=== PATIENT | female | born 1975 | race Caucasian/White ===

== ENCOUNTER 2016-11-23 00:49 | Inpatient (IN) | payer OTHER ==
[2016-11-23 01:41] LABS: Hematocrit 41 % (35-47); Hemoglobin 13.3 g/dl (12.0-16.0); Mean Corpuscular HGB Conc 33 g/dl (31-36); Mean Corpuscular Hemoglobin 31 pg (27-31); Mean Corpuscular Volume 95 fL (80-97); Mean Platelet Volume 7 um3 (7.4-10.4); Red Blood Count 4.27 10^6/ul (4.0-5.4); Red Cell Distribution Width 14 % (10.5-15); White Blood Count 18.9 10^3/ul (3.5-10.8)
[2016-11-23] MEDS ORDERED: hydrOXYzine HCL TAB* 50 MG PO ONE (01:45)
[2016-11-23 01:49] LABS: ALT 25 U/L (7-52); AST 31 U/L (13-39); Albumin 4.3 g/dL (3.2-5.2); Alkaline Phosphatase 63 U/L (34-104); Anion Gap 10 mmol/L (2-11); BUN/Creatinine Ratio 16.7 (8-20); Blood Urea Nitrogen 13 mg/dL (6-24); CO2 Carbon Dioxide 24 mmol/L (22-32); Calcium 8.8 mg/dL (8.6-10.3); Chloride 102 mmol/L (101-111); EGFR African American 105.7 (>60); EGFR Non-African American 82.2 (>60); Globulin 2.6 g/dL (2-4); Glucose 89 mg/dL (70-100); Potassium 3.5 mmol/L (3.5-5.0); Sodium 136 mmol/L (133-145); Total Protein 6.9 g/dL (6.4-8.9)
[2016-11-23 01:59] LABS: Acetaminophen < 15 mcg/mL; Alcohol 140 mg/dL (<10); Salicylate < 2.50 mg/dL (<30)
[2016-11-23 02:09] LABS: TSH (Thyroid Stimulating Horm) 1.84 mcIU/mL (0.34-5.60)
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
[2016-11-23 07:46] LABS: Urine Bilirubin Negative (Negative); Urine Glucose Negative (Negative); Urine Nitrite Negative (Negative)
[2016-11-23] MEDS ORDERED: Ibuprofen TAB* 600 MG PO ONE (08:04)
[2016-11-23 08:12] LABS: Benzodiazepine Urine Screen Presumptive Positive (None Detect)
--- NOTE | 2016-11-23 09:20 | RAD ---
Indication: Right knee swelling. 4 views of the right knee demonstrates no fracture. No other bone or joint abnormality is noted. IMPRESSION: No fracture of the right knee is noted.
--- NOTE | 2016-11-23 10:46 | ED ---
Gal Coleman Michael, scribed for Joe Mcmullen MD on 11/23/16 at 0808 . Progress - Progress Note Progress Note: The pt was signed out by Dr. Hull to Dr. Mcmullen. The pt was waiting for her knee XR results. The XR is negative. The pt has been seen by Psych and she will be admitted in stable condition with a diagnosis of bipolar manuel. - Results/Orders Results/Orders: Knee XR- ED provider: The knee XR is negative. - Consult/PCP Time Called: 07:25 Course/Dx - Diagnoses Provider Diagnoses: Alcohol intoxication, Suicidal ideation The documentation as recorded by the jonathanibGal sheffield Michael accurately reflects the service I personally performed and the decisions made by , Joe Mcmullen MD.
[2016-11-23] MEDS ORDERED: Al Hydrox/Mg Hydrox/Simet LIQ* 30 ML UDC PO PRN (11:16)
[2016-11-23] MEDS: Nicotine Inhaler* 10 MG AMP INH PRN ×4 (11:51→21:29)
[2016-11-23] MEDS: Acetaminophen TAB* 325 MG PO PRN ×2 (11:51→19:13)
[2016-11-23] MEDS: Mouth Piece, Nicotine* 1 EACH CARTRIDGE ONE (12:29)
[2016-11-23] MEDS: hydrOXYzine HCL TAB* 50 MG PO PRN ×3 (13:33→21:04)
[2016-11-23] MEDS: Ibuprofen TAB* 600 MG PO PRN ×2 (15:42→21:04)
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
[2016-11-23] MEDS: Hydrocortisone 1% CREAM* 30 GM TUBE TOPICAL SCH (20:30)
[2016-11-23] MEDS: Divalproex ER TAB(*) 500 MG PO SCH (20:32)
[2016-11-23] MEDS: traZODone TAB* 50 MG TAB PO SCH (23:15)
[2016-11-24] MEDS: Hydrocortisone 1% CREAM* 30 GM TUBE TOPICAL SCH ×4 (04:50→18:06)
[2016-11-24] MEDS ORDERED: Mouth Piece, Nicotine* 1 EACH CARTRIDGE ONE (05:06)
[2016-11-24] MEDS: Mouth Piece, Nicotine* 1 EACH CARTRIDGE ONE (05:10)
[2016-11-24] MEDS: hydrOXYzine HCL TAB* 50 MG PO PRN ×3 (05:10→15:59)
[2016-11-24] MEDS: Ibuprofen TAB* 600 MG PO PRN ×2 (05:10→11:15)
[2016-11-24] MEDS: Nicotine Inhaler* 10 MG AMP INH PRN ×5 (05:10→19:50)
[2016-11-24] MEDS: Vitamin THERAPEUTIC TAB PO SCH (08:28)
[2016-11-24] MEDS: Acetaminophen TAB* 325 MG PO PRN (16:00)
[2016-11-24] MEDS: Divalproex ER TAB(*) 500 MG PO SCH (20:09)
[2016-11-24] MEDS: traZODone TAB* 50 MG TAB PO SCH (20:10)
[2016-11-25] MEDS: Ibuprofen TAB* 600 MG PO PRN ×3 (00:04→18:18)
[2016-11-25] MEDS: hydrOXYzine HCL TAB* 50 MG PO PRN ×4 (00:05→18:17)
[2016-11-25] MEDS: Nicotine Inhaler* 10 MG AMP INH PRN ×4 (00:05→18:17)
[2016-11-25] MEDS: Hydrocortisone 1% CREAM* 30 GM TUBE TOPICAL SCH ×4 (02:59→18:14)
[2016-11-25] MEDS: Vitamin THERAPEUTIC TAB PO SCH (08:37)
[2016-11-25] MEDS: Acetaminophen TAB* 325 MG PO PRN (12:07)
--- NOTE | 2016-11-25 14:36 | PN ---
Subjective - Subjective Service Type: 18838 Hosp care 15 min low complexity Subjective: Ezra is well organized and pleasant today with several questions and requests. 1. staff pass 2. roommate with Gabby 3. hiwot gallegos 4. benzo 5. q30/comfort room 6. Friday discharge She is somewhat flirtatious, asks if she can see me in private practice, half- jokes about having a relationship with me beyond doctor-patient. She reports her mood is up and down, denies dangerous intent/plan or psychosis. Objective - Appearance Appearance: Healthy Appearing Dysmorphic Features: No Hygiene: Normal Grooming: Well Kept - Behavior Psychomotor Activities: Normal Exhibits Abnormal Movement: No - Attitude and Relatedness Attitude and Relatedness: Well Related - and a bit over-familiar Eye Contact: Good - Speech Quality: Unpressured Latencies: Normal Quantity: Appropriate - Mood Patient's Decription of Mood: "Up and down" - Affect Observed Affect: Labile Affect Consistent with: Euphoria - bordering on euphoria - Thought Process Patient's Thought Process: Coherent, Goal Directed Thought Content: No Passive Wish, No Suicidal Planning, No Homicidal Ideation, No Paranoid Ideation - Sensorium Experiencing Hallucinations: No, Sensorium is Clear Type of Hallucinations: Visual: No, Auditory: No, Command: No - Level of Consciousness Level of Consciousness: Alert Orientation: Yes Intact, Yes Orientated to Time, Yes Orientated to Place, Yes Orientated to Person - Impulse Control Impulse Control: Intact - but high energy with rapid, but still organized, thought excursions - Insight and Judgement Insight and Judgement: Fair - Group Participation Particating in Group Activities: Yes - Medication Management Medication Management Adherence: Yes Assessment - Assessment Merits Inpatient Hospitalization: For Stabilization, To Initiate Treatment, Consolidate Improvements, For Discharge Planning, Pending Safe DC Plan Inpatient DSM-IV Dx: Bipolar affective disorder type 1, most recent episode mixed. Post- traumatic stress disorder, complex type. Reported history of borderline personality disorder and generalized anxiety disorder. Alcohol use disorder severe, reportedly in sustained remission with only 2 lapses over the past 2 years, also benzodiazepine use disorder and cannabinoid use disorder. Clinical Impression: Day of admission 17: Ms. Teran is a 41-year-old woman who reports a remote history of manic episode lasting 4 months. She reports that she feels that she is having manic symptoms due to Xanax that she is taking currently. She has an extensive history of alcohol use disorder leading to bad consequences for her. She is with us now because of aggressive behavior under the influence of alcohol, resulting in spitting in a police officers face and other erratic behavior. Her family is convinced that she is ramping up into a manic episode and has not been doing well for some time now, and they advocated strongly for her admission to the unit per report of the emergency department medical care administrator. She has been admitted for safety, assessment and treatment. She has agreed to a trial of Depakote along with Atarax for anxiety. She is about 55 kg and so we will start with 10 mg/kg dosing of the Depakote to about 500 mg. I have started her as well on Atarax 50 mg every 4 hours p.r.n. anxiety. She is on nicotine replacement. Aftercare is likely to be return to care at [facility]. She was quite agitated initially, but receptive to overtures to form an alliance and there are some indications that she may do well here despite initial presentation as quite anxious and agitated. We will be gathering collateral from those in the community that she permits us to. We will consider also psychological testing to help clarify diagnostic picture. We may consider with her whether referral to some sort of substance abuse treatment might be indicated due to a recent relapse, which may be understated. Day 3, 17: Still high energy and somewhat overfamiliar, but well organized with me, though I see in her interaction with nurse Lozoya, she was tearful at times. Will nubia all of her request except room change and staff pass, former to be decided by nursing staff, latter tomorrow on treatment team with input of staff who have more contact with her at that point. Discharge when manuel has lifted sufficiently. Plan - Plan Treatment Plan: Name: EZRA TERAN Birthdate: 1975 [id number] Add Klonopin 0.5 mg po bid to current meds. Monitor MS and safety. Gather collateral. Plan toward discharge to continued care with community mental health providers. Medications: Current Medications Acetaminophen (Tylenol Tab*) 650 mg PO Q4H PRN PRN Reason: for pain; or Temp >101 F Last Admin: 11/25/16 12:07 Dose: 650 mg Al Hydrox/Mg Hydrox/Simethicone (Maalox Plus*) 30 ml PO Q4H PRN PRN Reason: INDIGESTION Clonazepam (Klonopin Tab(*)) 0.5 mg PO BID [facility] Divalproex Sodium (Depakote Er Tab(*)) 500 mg PO BEDTIME [facility] Last Admin: 11/24/16 20:09 Dose: 500 mg Hydrocortisone (Hytone Cream 1%*) 1 applic TOPICAL Q6HR [facility] Last Admin: 11/25/16 12:07 Dose: 1 applic Hydroxyzine HCl (Atarax Tab*) 50 mg PO Q4H PRN PRN Reason: ANXIETY Last Admin: 11/25/16 12:59 Dose: 50 mg Ibuprofen (Motrin Tab*) 600 mg PO Q6H PRN PRN Reason: PAIN Last Admin: 11/25/16 08:37 Dose: 600 mg Multi-Ingredient Liniment/Rub (Hiwot Gallegos*) 1 applic TOPICAL TID [facility] Multivitamins (Theragran Tab*) 1 tab PO DAILY [facility] Last Admin: 11/25/16 08:37 Dose: 1 tab Nicotine (Nicotine Inhaler*) 10 mg INH Q2H PRN PRN Reason: CRAVING Last Admin: 11/25/16 12:06 Dose: 10 mg Nicotine Polacrilex (Nicotine Gum*) 2 mg PO Q2H PRN PRN Reason: CRAVING Risperidone (Risperdal) 0.5 mg PO BID [facility] Last Admin: 11/25/16 08:38 Dose: 0.5 mg Trazodone HCl (Desyrel Tab*) 50 mg PO BEDTIME [facility] Last Admin: 11/24/16 20:10 Dose: 50 mg - Discharge Plan Discharge Plan: Outpatient Follow Up
[2016-11-25] MEDS: Nicotine GUM* 2 MG PO PRN ×2 (15:50→20:32)
[2016-11-25] MEDS ORDERED: clonazePAM TAB(*) 0.5 MG ONE (16:03)
[2016-11-25] MEDS ORDERED: clonazePAM TAB(*) 0.5 MG PO ONE (17:00)
[2016-11-25] MEDS: traZODone TAB* 50 MG TAB PO SCH (20:29)
[2016-11-25] MEDS: clonazePAM TAB(*) 0.5 MG PO SCH (20:29)
[2016-11-25] MEDS: Analgesic BALM* 114 GM TOPICAL SCH (20:30)
[2016-11-25] MEDS: Divalproex ER TAB(*) 500 MG PO SCH (20:30)
[2016-11-26] MEDS: Hydrocortisone 1% CREAM* 30 GM TUBE TOPICAL SCH ×4 (00:35→21:04)
[2016-11-26] MEDS: clonazePAM TAB(*) 0.5 MG PO SCH (09:04)
[2016-11-26] MEDS: Vitamin THERAPEUTIC TAB PO SCH (09:05)
[2016-11-26] MEDS: Nicotine GUM* 2 MG PO PRN ×4 (09:07→16:35)
[2016-11-26] MEDS: Nicotine Inhaler* 10 MG AMP INH PRN (09:07)
[2016-11-26] MEDS: Ibuprofen TAB* 600 MG PO PRN ×3 (09:08→21:10)
[2016-11-26] MEDS: hydrOXYzine HCL TAB* 50 MG PO PRN ×3 (09:08→21:10)
[2016-11-26] MEDS: Analgesic BALM* 114 GM TOPICAL SCH ×3 (09:09→21:03)
--- NOTE | 2016-11-26 17:10 | PN ---
Subjective - Subjective Service Type: 11366 Hosp care 15 min low complexity Subjective: Ezra says she is sad that we did not nubia staff pass today, and that her boyfriend Feliz is sick so cannot visit her today. She requests increased Klonopin frequency from q12 to q6 hours. She also requests flonase. She feels her medications are helpful. [place] apologetic with social work staff today, appears labile. Objective - Appearance Appearance: Healthy Appearing Dysmorphic Features: No Hygiene: Normal Grooming: Fairly Well Kept - Behavior Psychomotor Activities: Normal Exhibits Abnormal Movement: No - Attitude and Relatedness Attitude and Relatedness: Cooperative Eye Contact: Good - Speech Quality: Unpressured Latencies: Normal Quantity: Appropriate - Mood Patient's Decription of Mood: "Sad" - Affect Observed Affect: Labile Affect Consistent with: Dysphoria - Thought Process Patient's Thought Process: Coherent, Goal Directed Thought Content: No Passive Wish, No Suicidal Planning, No Homicidal Ideation, No Paranoid Ideation - Sensorium Experiencing Hallucinations: No, Sensorium is Clear Type of Hallucinations: Visual: No, Auditory: No, Command: No - Level of Consciousness Level of Consciousness: Alert Orientation: Yes Intact, Yes Orientated to Time, Yes Orientated to Place, Yes Orientated to Person - Impulse Control Impulse Control: Intact - Insight and Judgement Insight and Judgement: Fair Assessment - Assessment Merits Inpatient Hospitalization: For Stabilization, Consolidate Improvements, For Discharge Planning Inpatient DSM-IV Dx: Bipolar affective disorder type 1, most recent episode mixed. Post- traumatic stress disorder, complex type. Reported history of borderline personality disorder and generalized anxiety disorder. Alcohol use disorder severe, reportedly in sustained remission with only 2 lapses over the past 2 years, also benzodiazepine use disorder and cannabinoid use disorder. Clinical Impression: Day of admission 17: Ms. Teran is a 41-year-old woman who reports a remote history of manic episode lasting 4 months. She reports that she feels that she is having manic symptoms due to Xanax that she is taking currently. She has an extensive history of alcohol use disorder leading to bad consequences for her. She is with us now because of aggressive behavior under the influence of alcohol, resulting in spitting in a police officers face and other erratic behavior. Her family is convinced that she is ramping up into a manic episode and has not been doing well for some time now, and they advocated strongly for her admission to the unit per report of the emergency department pickle pumper. She has been admitted for safety, assessment and treatment. She has agreed to a trial of Depakote along with Atarax for anxiety. She is about 55 kg and so we will start with 10 mg/kg dosing of the Depakote to about 500 mg. I have started her as well on Atarax 50 mg every 4 hours p.r.n. anxiety. She is on nicotine replacement. Aftercare is likely to be return to care at [facility]. She was quite agitated initially, but receptive to overtures to form an alliance and there are some indications that she may do well here despite initial presentation as quite anxious and agitated. We will be gathering collateral from those in the community that she permits us to. We will consider also psychological testing to help clarify diagnostic picture. We may consider with her whether referral to some sort of substance abuse treatment might be indicated due to a recent relapse, which may be understated. Day 3, 320.17: Still high energy and somewhat overfamiliar, but well organized with me, though I see in her interaction with nurse Lozoya, she was tearful at times. Will nubia all of her request except room change and staff pass, former to be decided by nursing staff, latter tomorrow on treatment team with input of staff who have more contact with her at that point. Discharge when manuel has lifted sufficiently. Plan - Plan Treatment Plan: Name: EZRA TERAN Birthdate: 1975 [id number] Increase Klonopin 0.5 mg po to q6hrs prn. Monitor MS and safety. Gather collateral. Plan toward discharge to continued care with community mental health providers. Medications: Current Medications Acetaminophen (Tylenol Tab*) 650 mg PO Q4H PRN PRN Reason: for pain; or Temp >101 F Last Admin: 11/25/16 12:07 Dose: 650 mg Al Hydrox/Mg Hydrox/Simethicone (Maalox Plus*) 30 ml PO Q4H PRN PRN Reason: INDIGESTION Clonazepam (Klonopin Tab(*)) 0.5 mg PO BID [facility] Last Admin: 11/26/16 09:04 Dose: 0.5 mg Divalproex Sodium (Depakote Er Tab(*)) 500 mg PO BEDTIME [facility] Last Admin: 11/25/16 20:30 Dose: 500 mg Hydrocortisone (Hytone Cream 1%*) 1 applic TOPICAL Q6HR [facility] Last Admin: 11/26/16 12:02 Dose: 1 applic Hydroxyzine HCl (Atarax Tab*) 50 mg PO Q4H PRN PRN Reason: ANXIETY Last Admin: 11/26/16 16:35 Dose: 50 mg Ibuprofen (Motrin Tab*) 600 mg PO Q6H PRN PRN Reason: PAIN Last Admin: 11/26/16 16:34 Dose: 600 mg Multi-Ingredient Liniment/Rub (Pedro Martinez*) 1 applic TOPICAL TID [facility] Last Admin: 11/26/16 13:56 Dose: 1 applic Multivitamins (Theragran Tab*) 1 tab PO DAILY [facility] Last Admin: 11/26/16 09:05 Dose: 1 tab Nicotine (Nicotine Inhaler*) 10 mg INH Q2H PRN PRN Reason: CRAVING Last Admin: 11/26/16 09:07 Dose: 10 mg Nicotine Polacrilex (Nicotine Gum*) 2 mg PO Q2H PRN PRN Reason: CRAVING Last Admin: 11/26/16 16:35 Dose: 2 mg Risperidone (Risperdal) 0.5 mg PO BID [facility] Last Admin: 11/26/16 09:05 Dose: 0.5 mg Trazodone HCl (Desyrel Tab*) 50 mg PO BEDTIME [facility] Last Admin: 11/25/16 20:29 Dose: 50 mg - Discharge Plan Discharge Plan: Outpatient Follow Up
[2016-11-26] MEDS: clonazePAM TAB(*) 0.5 MG PO PRN ×2 (17:37→23:36)
[2016-11-26] MEDS: Divalproex ER TAB(*) 500 MG PO SCH (21:00)
[2016-11-26] MEDS: traZODone TAB* 50 MG TAB PO SCH (21:01)
[2016-11-26] MEDS: Fluticasone NASAL SPRAY 50MCG* 16 gm SPRAY BTL BOTH NARES SCH (21:07)
[2016-11-27] MEDS: Hydrocortisone 1% CREAM* 30 GM TUBE TOPICAL SCH ×4 (05:37→20:33)
[2016-11-27] MEDS: clonazePAM TAB(*) 0.5 MG PO PRN ×3 (07:44→20:29)
[2016-11-27] MEDS: Vitamin THERAPEUTIC TAB PO SCH (07:45)
[2016-11-27] MEDS: Analgesic BALM* 114 GM TOPICAL SCH ×3 (07:45→20:41)
[2016-11-27] MEDS: Fluticasone NASAL SPRAY 50MCG* 16 gm SPRAY BTL BOTH NARES SCH (07:46)
[2016-11-27] MEDS: Nicotine Inhaler* 10 MG AMP INH PRN ×3 (07:49→15:56)
[2016-11-27] MEDS: Nicotine GUM* 2 MG PO PRN ×6 (07:49→20:30)
[2016-11-27] MEDS: Ibuprofen TAB* 600 MG PO PRN ×2 (09:56→15:56)
[2016-11-27] MEDS: hydrOXYzine HCL TAB* 50 MG PO PRN ×2 (09:56→14:35)
[2016-11-27] MEDS: Acetaminophen TAB* 325 MG PO PRN ×2 (12:50→18:39)
--- NOTE | 2016-11-27 13:14 | PN ---
[facility]: Group Therapy Note - Service Type Service Type: 24397 Group Psychotherapy - Cognitive Behavioral Group Therapy ( CBT):Patient was attentive and participatory in CBT programming this morning, and remained in good behavioral control. Patient expressed positive insights regarding relevant treatment interventions and goals.
[2016-11-27] MEDS ORDERED: Mouth Piece, Nicotine* 1 EACH CARTRIDGE ONE (15:55)
--- NOTE | 2016-11-27 16:46 | PN ---
Subjective - Subjective Service Type: 69851 Hosp care 15 min low complexity Subjective: Ezra reports feeling sad after a meeting she had with the conduit worker on this case, Ms Briseno. She reports that she does not want to go to rehab as she feels threatened in rehab programs, would instead like to continue with going to the [facility] in [place], to which she has found someone to give her a ride. She requests increased doses of Depakote, Risperdal, and Atarax. Objective - Appearance Appearance: Healthy Appearing Dysmorphic Features: No Hygiene: Normal Grooming: Fairly Well Kept - Behavior Psychomotor Activities: Normal Exhibits Abnormal Movement: No - Attitude and Relatedness Attitude and Relatedness: Well Related - if a bit over-familiar Eye Contact: Good - Speech Quality: Unpressured Latencies: Normal Quantity: Appropriate - Mood Patient's Decription of Mood: "Sad" - Affect Observed Affect: Fair Affect Consistent with: Euthymia - but with a labile feel - Thought Process Patient's Thought Process: Coherent, Goal Directed Thought Content: No Passive Wish, No Suicidal Planning, No Homicidal Ideation, No Paranoid Ideation - Sensorium Experiencing Hallucinations: No, Sensorium is Clear Type of Hallucinations: Visual: No, Auditory: No, Command: No - Level of Consciousness Orientation: Yes Intact, Yes Orientated to Time, Yes Orientated to Place, Yes Orientated to Person - Impulse Control Impulse Control: Intact - Insight and Judgement Insight and Judgement: Fair - Group Participation Particating in Group Activities: Yes - Medication Management Medication Management Adherence: Yes Assessment - Assessment Merits Inpatient Hospitalization: For Stabilization, For Ongoing Evaluation, For Discharge Planning, Pending Safe DC Plan Inpatient DSM-IV Dx: Bipolar affective disorder type 1, most recent episode mixed. Post- traumatic stress disorder, complex type. Reported history of borderline personality disorder and generalized anxiety disorder. Alcohol use disorder severe, reportedly in sustained remission with only 2 lapses over the past 2 years, also benzodiazepine use disorder and cannabinoid use disorder. Clinical Impression: Day of admission 17: Ms. Teran is a 41-year-old woman who reports a remote history of manic episode lasting 4 months. She reports that she feels that she is having manic symptoms due to Xanax that she is taking currently. She has an extensive history of alcohol use disorder leading to bad consequences for her. She is with us now because of aggressive behavior under the influence of alcohol, resulting in spitting in a police officers face and other erratic behavior. Her family is convinced that she is ramping up into a manic episode and has not been doing well for some time now, and they advocated strongly for her admission to the unit per report of the emergency department developer relations manager. She has been admitted for safety, assessment and treatment. She has agreed to a trial of Depakote along with Atarax for anxiety. She is about 55 kg and so we will start with 10 mg/kg dosing of the Depakote to about 500 mg. I have started her as well on Atarax 50 mg every 4 hours p.r.n. anxiety. She is on nicotine replacement. Aftercare is likely to be return to care at [facility]. She was quite agitated initially, but receptive to overtures to form an alliance and there are some indications that she may do well here despite initial presentation as quite anxious and agitated. We will be gathering collateral from those in the community that she permits us to. We will consider also psychological testing to help clarify diagnostic picture. We may consider with her whether referral to some sort of substance abuse treatment might be indicated due to a recent relapse, which may be understated. Day 3, 20.17: Still high energy and somewhat overfamiliar, but well organized with me, though I see in her interaction with nurse Lozoya, she was tearful at times. Will nubia all of her request except room change and staff pass, former to be decided by nursing staff, latter tomorrow on treatment team with input of staff who have more contact with her at that point. Discharge when manuel has lifted sufficiently. Day 5, 11.27.17: Still with lability in her presentation, but less so. Agrees to meeting with boyfriend prior to discharge. Plan - Plan Treatment Plan: Name: EZRA TERAN Birthdate: 1975 [id number] Increase Depakote, Risperdal and Atarax doses. Monitor MS and safety. Gather collateral. Plan toward discharge to continued care with community mental health providers. Medications: Current Medications Acetaminophen (Tylenol Tab*) 650 mg PO Q4H PRN PRN Reason: for pain; or Temp >101 F Last Admin: 11/27/16 12:50 Dose: 650 mg Al Hydrox/Mg Hydrox/Simethicone (Maalox Plus*) 30 ml PO Q4H PRN PRN Reason: INDIGESTION Clonazepam (Klonopin Tab(*)) 0.5 mg PO Q6H PRN PRN Reason: ANXIETY Last Admin: 11/27/16 14:36 Dose: 0.5 mg Divalproex Sodium (Depakote Er Tab(*)) 500 mg PO BEDTIME [facility] Last Admin: 11/26/16 21:00 Dose: 500 mg Fluticasone Propionate (Flonase Nasal [place] 50mcg*) 2 spray BOTH NARES DAILY [facility] Last Admin: 11/27/16 07:46 Dose: 2 spray Hydrocortisone (Hytone Cream 1%*) 1 applic TOPICAL Q6HR [facility] Last Admin: 11/27/16 12:43 Dose: 1 applic Hydroxyzine HCl (Atarax Tab*) 50 mg PO Q4H PRN PRN Reason: ANXIETY Last Admin: 11/27/16 14:35 Dose: 50 mg Ibuprofen (Motrin Tab*) 600 mg PO Q6H PRN PRN Reason: PAIN Last Admin: 11/27/16 15:56 Dose: 600 mg Multi-Ingredient Liniment/Rub (Pedro Martinez*) 1 applic TOPICAL TID [facility] Last Admin: 11/27/16 14:33 Dose: 1 applic Multivitamins (Theragran Tab*) 1 tab PO DAILY [facility] Last Admin: 11/27/16 07:45 Dose: 1 tab Nicotine (Nicotine Inhaler*) 10 mg INH Q2H PRN PRN Reason: CRAVING Last Admin: 11/27/16 15:56 Dose: 10 mg Nicotine Polacrilex (Nicotine Gum*) 2 mg PO Q2H PRN PRN Reason: CRAVING Last Admin: 11/27/16 15:56 Dose: 2 mg Risperidone (Risperdal) 0.5 mg PO BID [facility] Last Admin: 11/27/16 07:45 Dose: 0.5 mg Trazodone HCl (Desyrel Tab*) 50 mg PO BEDTIME [facility] Last Admin: 11/26/16 21:01 Dose: 50 mg - Discharge Plan Discharge Plan: Outpatient Follow Up
[2016-11-27] MEDS: Divalproex ER TAB(*) 500 MG PO SCH (20:29)
[2016-11-27] MEDS: risperiDONE TAB* 1 MG PO SCH (20:29)
[2016-11-27] MEDS: traZODone TAB* 50 MG TAB PO SCH (20:29)
[2016-11-28] MEDS: Hydrocortisone 1% CREAM* 30 GM TUBE TOPICAL SCH ×4 (00:22→18:44)
[2016-11-28] MEDS: Nicotine GUM* 2 MG PO PRN ×5 (09:06→20:39)
[2016-11-28] MEDS: clonazePAM TAB(*) 0.5 MG PO PRN ×3 (09:06→21:34)
[2016-11-28] MEDS: hydrOXYzine HCL TAB* 50 MG PO PRN ×3 (09:07→18:44)
[2016-11-28] MEDS: Ibuprofen TAB* 600 MG PO PRN ×2 (09:07→15:18)
[2016-11-28] MEDS: Fluticasone NASAL SPRAY 50MCG* 16 gm SPRAY BTL BOTH NARES SCH (09:08)
[2016-11-28] MEDS: Vitamin THERAPEUTIC TAB PO SCH (09:08)
[2016-11-28] MEDS: risperiDONE TAB* 1 MG PO SCH ×2 (09:08→20:37)
[2016-11-28] MEDS: Divalproex DR TAB(*) 125 MG PO SCH (09:09)
[2016-11-28] MEDS: Analgesic BALM* 114 GM TOPICAL SCH ×3 (09:11→20:35)
[2016-11-28] MEDS: Nicotine Inhaler* 10 MG AMP INH PRN ×2 (12:14→17:19)
[2016-11-28] MEDS: Acetaminophen TAB* 325 MG PO PRN ×2 (12:50→17:19)
--- NOTE | 2016-11-28 17:17 | PN ---
Subjective - Subjective Service Type: 17332 Hosp care 15 min low complexity Subjective: Family meeting held today with Ezra, her boyfriend, Ms Briseno and myself. Feliz reported seeing Ezra near to her baseline and safe for discharge tomorrow. Ezra agreed with that plan. Objective - Appearance Appearance: Healthy Appearing Dysmorphic Features: No Hygiene: Normal Grooming: Well Kept - Behavior Psychomotor Activities: Normal Exhibits Abnormal Movement: No - Attitude and Relatedness Attitude and Relatedness: Well Related - and less overfamiliar than 2 days ago Eye Contact: Good - Speech Quality: Unpressured Latencies: Normal Quantity: Appropriate - Mood Patient's Decription of Mood: "Good" - Affect Observed Affect: Good Affect Consistent with: Euthymia - Thought Process Patient's Thought Process: Coherent, Goal Directed Thought Content: No Passive Wish, No Suicidal Planning, No Homicidal Ideation, No Paranoid Ideation - Sensorium Experiencing Hallucinations: No, Sensorium is Clear Type of Hallucinations: Visual: No, Auditory: No, Command: No - Level of Consciousness Level of Consciousness: Alert Orientation: Yes Intact, Yes Orientated to Time, Yes Orientated to Place, Yes Orientated to Person - Impulse Control Impulse Control: Intact - Insight and Judgement Insight and Judgement: Fair - Group Participation Particating in Group Activities: Yes - Medication Management Medication Management Adherence: Yes Assessment - Assessment Inpatient DSM-IV Dx: Bipolar affective disorder type 1, most recent episode mixed. Post- traumatic stress disorder, complex type. Reported history of borderline personality disorder and generalized anxiety disorder. Alcohol use disorder severe, reportedly in sustained remission with only 2 lapses over the past 2 years, also benzodiazepine use disorder and cannabinoid use disorder. Clinical Impression: Day of admission 3.17: Ms. Teran is a 41-year-old woman who reports a remote history of manic episode lasting 4 months. She reports that she feels that she is having manic symptoms due to Xanax that she is taking currently. She has an extensive history of alcohol use disorder leading to bad consequences for her. She is with us now because of aggressive behavior under the influence of alcohol, resulting in spitting in a police officers face and other erratic behavior. 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 She has been admitted for safety, assessment and treatment. She has agreed to a trial of Depakote along with Atarax for anxiety. She is about 55 kg and so we will start with 10 mg/kg dosing of the Depakote to about 500 mg. I have started her as well on Atarax 50 mg every 4 hours p.r.n. anxiety. She is on nicotine replacement. Aftercare is likely to be return to care at [facility]. She was quite agitated initially, but receptive to overtures to form an alliance and there are some indications that she may do well here despite initial presentation as quite anxious and agitated. We will be gathering collateral from those in the community that she permits us to. We will consider also psychological testing to help clarify diagnostic picture. We may consider with her whether referral to some sort of substance abuse treatment might be indicated due to a recent relapse, which may be understated. Day 3, 11.25.17: Still high energy and somewhat overfamiliar, but well organized with me, though I see in her interaction with nurse Lozoya, she was tearful at times. Will nubia all of her request except room change and staff pass, former to be decided by nursing staff, latter tomorrow on treatment team with input of staff who have more contact with her at that point. Discharge when manuel has lifted sufficiently. Day 5, 11.27.17: Still with lability in her presentation, but less so. Agrees to meeting with boyfriend prior to discharge. Day 6, 11.28.17: Reports feeling safe and ready for discharge. Her boyfriend agrees. She agrees to d/c Klonopin, likes hydroxyzine as anxiolytic. Plan for discharge midday tomorrow. Plan - Plan Treatment Plan: Name: EZRA TERAN Birthdate: 1975 [id number] Continue Depakote, Risperdal and Atarax. Monitor MS and safety. Discharge tomorrow to continued care with community mental health providers. Medications: Current Medications Acetaminophen (Tylenol Tab*) 650 mg PO Q4H PRN PRN Reason: for pain; or Temp >101 F Last Admin: 11/28/16 12:50 Dose: 650 mg Al Hydrox/Mg Hydrox/Simethicone (Maalox Plus*) 30 ml PO Q4H PRN PRN Reason: INDIGESTION Clonazepam (Klonopin Tab(*)) 0.5 mg PO Q6H PRN PRN Reason: ANXIETY Last Admin: 11/28/16 15:19 Dose: 0.5 mg Divalproex Sodium (Depakote Er Tab(*)) 500 mg PO BEDTIME [facility] Last Admin: 11/27/16 20:29 Dose: 500 mg Divalproex Sodium (Depakote Dr Tab(*)) 125 mg PO DAILY [facility] Last Admin: 11/28/16 09:09 Dose: 125 mg Fluticasone Propionate (Flonase Nasal [place] 50mcg*) 2 spray BOTH NARES DAILY [facility] Last Admin: 11/28/16 09:08 Dose: 2 spray Hydrocortisone (Hytone Cream 1%*) 1 applic TOPICAL Q6HR [facility] Last Admin: 11/28/16 12:12 Dose: 1 applic Hydroxyzine HCl (Atarax Tab*) 50 mg PO Q4H PRN PRN Reason: ANXIETY Last Admin: 11/28/16 14:12 Dose: 50 mg Ibuprofen (Motrin Tab*) 600 mg PO Q6H PRN PRN Reason: PAIN Last Admin: 11/28/16 15:18 Dose: 600 mg Multi-Ingredient Liniment/Rub (Pedro Martinez*) 1 applic TOPICAL TID [facility] Last Admin: 11/28/16 14:12 Dose: 1 applic Multivitamins (Theragran Tab*) 1 tab PO DAILY [facility] Last Admin: 11/28/16 09:08 Dose: 1 tab Nicotine (Nicotine Inhaler*) 10 mg INH Q2H PRN PRN Reason: CRAVING Last Admin: 11/28/16 12:14 Dose: 10 mg Nicotine Polacrilex (Nicotine Gum*) 2 mg PO Q2H PRN PRN Reason: CRAVING Last Admin: 11/28/16 15:19 Dose: 2 mg Risperidone (Risperdal*) 1 mg PO BID [facility] Last Admin: 11/28/16 09:08 Dose: 1 mg Trazodone HCl (Desyrel Tab*) 50 mg PO BEDTIME [facility] Last Admin: 11/27/16 20:29 Dose: 50 mg - Discharge Plan Discharge Plan: Outpatient Follow Up Outpatient Program: [facility]
[2016-11-28] MEDS: Divalproex ER TAB(*) 500 MG PO SCH (20:37)
[2016-11-28] MEDS: traZODone TAB* 50 MG TAB PO SCH (20:37)
[2016-11-29] MEDS: Hydrocortisone 1% CREAM* 30 GM TUBE TOPICAL SCH ×4 (00:03→18:03)
[2016-11-29] MEDS: Ibuprofen TAB* 600 MG PO PRN ×4 (00:05→20:19)
[2016-11-29] MEDS: hydrOXYzine HCL TAB* 50 MG PO PRN ×4 (00:05→20:19)
[2016-11-29] MEDS: Nicotine GUM* 2 MG PO PRN ×7 (00:05→20:19)
[2016-11-29] MEDS: clonazePAM TAB(*) 0.5 MG PO PRN ×3 (05:55→18:13)
[2016-11-29] MEDS: Nicotine Inhaler* 10 MG AMP INH PRN ×4 (07:02→20:19)
[2016-11-29] MEDS: risperiDONE TAB* 1 MG PO SCH ×2 (09:02→20:19)
[2016-11-29] MEDS: Vitamin THERAPEUTIC TAB PO SCH (09:02)
[2016-11-29] MEDS: Fluticasone NASAL SPRAY 50MCG* 16 gm SPRAY BTL BOTH NARES SCH (09:03)
[2016-11-29] MEDS: Divalproex DR TAB(*) 125 MG PO SCH (09:03)
[2016-11-29] MEDS: Analgesic BALM* 114 GM TOPICAL SCH ×3 (09:04→21:04)
[2016-11-29] MEDS: Acetaminophen TAB* 325 MG PO PRN ×2 (09:09→17:55)
--- NOTE | 2016-11-29 14:13 | DS ---
Subjective - Subjective Service Types: 62475 [facility] Day Mgmt complex over 30 min Discharge Date: 11/29/16 Subjective: Discharge was anticipated for today until on treatment team this morning it was reported that she threatened to kill herself after discharge in the midst of an argument over the phone with her boyfriend Feliz. Per Feliz, her statement was that she would join a relative. She denies that she made such a statement. She is very upset that she cannot leave to complete a Reiki I atunement this weekend. Her mother has called to advocate for her discharge and reported that Feliz abuses Adderall and cough syrup and has a history of manipulativeness with Samira. Objective - Appearance Appearance: Healthy Appearing Dysmorphic Features: No Hygiene: Normal Grooming: Fairly Well Kept - Behavior Psychomotor Activities: Normal Exhibits Abnormal Movement: No - Attitude and Relatedness Attitude and Relatedness: Well Related Eye Contact: Good - Speech Quality: Unpressured Latencies: Normal Quantity: Appropriate - Mood Patient's Decription of Mood: "Upset" - Affect Observed Affect: Labile Affect Consistent with: Dysphoria - appropriately to a degree - Thought Process Patient's Thought Process: Coherent, Goal Directed Thought Content: No Passive Wish, No Suicidal Planning, No Homicidal Ideation, No Paranoid Ideation - Sensorium Experiencing Hallucinations: No, Sensorium is Clear Type of Hallucinations: Visual: No, Auditory: No, Command: No - Level of Consciousness Level of Consciousness: Alert Orientation: Yes Intact, Yes Orientated to Time, Yes Orientated to Place, Yes Orientated to Person - Impulse Control Impulse Control: Intact - Insight and Judgement Insight and Judgement: Fair - Group Participation Particating in Group Activities: Yes - Medication Management Medication Management Adherence: Yes Treatment Course & Assessment Clinical Course & Impression: Day of admission 11.23.16: Ms. Corona is a 41-year-old woman who reports a remote history of manic episode lasting 4 months. She reports that she feels that she is having manic symptoms due to Xanax that she is taking currently. She has an extensive history of alcohol use disorder leading to bad consequences for her. She is with us now because of aggressive behavior under the influence of alcohol, resulting in spitting in a police officers face and other erratic behavior. 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 She has been admitted for safety, assessment and treatment. She has agreed to a trial of Depakote along with Atarax for anxiety. She is about 55 kg and so we will start with 10 mg/kg dosing of the Depakote to about 500 mg. I have started her as well on Atarax 50 mg every 4 hours p.r.n. anxiety. She is on nicotine replacement. Aftercare is likely to be return to care at [facility]. She was quite agitated initially, but receptive to overtures to form an alliance and there are some indications that she may do well here despite initial presentation as quite anxious and agitated. We will be gathering collateral from those in the community that she permits us to. We will consider also psychological testing to help clarify diagnostic picture. We may consider with her whether referral to some sort of substance abuse treatment might be indicated due to a recent relapse, which may be understated. Day 3, 11.25.17: Still high energy and somewhat overfamiliar, but well organized with me, though I see in her interaction with nurse Lozoya, she was tearful at times. Will nubia all of her request except room change and staff pass, former to be decided by nursing staff, latter tomorrow on treatment team with input of staff who have more contact with her at that point. Discharge when manuel has lifted sufficiently. Day 5, 11.27.17: Still with lability in her presentation, but less so. Agrees to meeting with boyfriend prior to discharge. Day , 11.28.17: Reports feeling safe and ready for discharge. Her boyfriend agrees. She agrees to d/c Klonopin, likes hydroxyzine as anxiolytic. Plan for discharge midday tomorrow. Day , 11.29.17: Report of suicidality from her boyfriend has called into question her readiness for discharge contingent on reliability of his report. His report on the face of it seems reliable, as it seems unlikely he would be reporting this for the sake of keeping her in the hospital after telling us yesterday that he was glad she would discharge today, but we cannot entirely rule out that he is manipulating the situation as Samira's mother reports. Prudence dictates delay of discharge until this situation is more settled, as the report if manipulative indicates unstable setting for discharge into apartment shared with Feliz, and if genuine indicates need for further stabilization prior to discharge. Inpatient DSM-IV Dx: Bipolar affective disorder type 1, most recent episode mixed. Post- traumatic stress disorder, complex type. Reported history of borderline personality disorder and generalized anxiety disorder. Alcohol use disorder severe, reportedly in sustained remission with only 2 lapses over the past 2 years, also benzodiazepine use disorder and cannabinoid use disorder. Discharge Planning - Discharge Planning Medications: Current Medications Acetaminophen (Tylenol Tab*) 650 mg PO Q4H PRN PRN Reason: for pain; or Temp >101 F Last Admin: 11/29/16 09:09 Dose: 650 mg Al Hydrox/Mg Hydrox/Simethicone (Maalox Plus*) 30 ml PO Q4H PRN PRN Reason: INDIGESTION Clonazepam (Klonopin Tab(*)) 0.5 mg PO Q6H PRN PRN Reason: ANXIETY Last Admin: 11/29/16 12:07 Dose: 0.5 mg Divalproex Sodium (Depakote Er Tab(*)) 500 mg PO BEDTIME [facility] Last Admin: 11/28/16 20:37 Dose: 500 mg Divalproex Sodium (Depakote Dr Tab(*)) 125 mg PO DAILY [facility] Last Admin: 11/29/16 09:03 Dose: 125 mg Fluticasone Propionate (Flonase Nasal [place] 50mcg*) 2 spray BOTH NARES DAILY [facility] Last Admin: 11/29/16 09:03 Dose: 2 spray Hydrocortisone (Hytone Cream 1%*) 1 applic TOPICAL Q6HR [facility] Last Admin: 11/29/16 12:06 Dose: 1 applic Hydroxyzine HCl (Atarax Tab*) 50 mg PO Q4H PRN PRN Reason: ANXIETY Last Admin: 11/29/16 09:07 Dose: 50 mg Ibuprofen (Motrin Tab*) 600 mg PO Q6H PRN PRN Reason: PAIN Last Admin: 11/29/16 05:58 Dose: 600 mg Multi-Ingredient Liniment/Rub (Pedro Martinez*) 1 applic TOPICAL TID [facility] Last Admin: 11/29/16 09:04 Dose: 1 applic Multivitamins (Theragran Tab*) 1 tab PO DAILY [facility] Last Admin: 11/29/16 09:02 Dose: 1 tab Nicotine (Nicotine Inhaler*) 10 mg INH Q2H PRN PRN Reason: CRAVING Last Admin: 11/29/16 07:02 Dose: 10 mg Nicotine Polacrilex (Nicotine Gum*) 2 mg PO Q2H PRN PRN Reason: CRAVING Last Admin: 11/29/16 11:40 Dose: 2 mg Risperidone (Risperdal*) 1 mg PO BID [facility] Last Admin: 11/29/16 09:02 Dose: 1 mg Trazodone HCl (Desyrel Tab*) 50 mg PO BEDTIME [facility] Last Admin: 11/28/16 20:37 Dose: 50 mg Discharge Planning: Prescriptions provided for discharge [] Yes [] No Follow up care details as per social work arrangements. Patient response to discharge plan: [] eager for discharge [] agreeable with discharge plan [] ambivalent about discharge [] disagrees with discharge today
--- NOTE | 2016-11-29 14:14 | PN ---
[facility]: Group Therapy Note - Service Type Service Type: [id number] Group Psychotherapy - CBT programming note: Samira was intially very agitated, disrupting group discussion to ventilate her frustration with having to remain the weekend. She presents with labile mood, and high volume of speech, although calms herself adequately when afforded opportunity to express herself. However she exhibits poor insight regarding symptoms, and is infuriated at now estranged boyfriend for reporting to staff his impressions that she in not stable.
--- NOTE | 2016-11-29 14:29 | PN ---
Subjective - Subjective Service Type: [id number] Hosp care 15 min low complexity Subjective: Discharge was anticipated for today until on treatment team this morning it was reported that she threatened to kill herself after discharge in the midst of an argument over the phone with her boyfriend Feliz. Per Feliz, her statement was that she would join a relative. She denies that she made such a statement. She is very upset that she cannot leave to complete a Reiki I atunement this weekend. Her mother has called to advocate for her discharge and reported that Feliz abuses Adderall and cough syrup and has a history of manipulativeness with Ezra. Objective - Appearance Appearance: Well Developed/Nourished Dysmorphic Features: No Hygiene: Normal Grooming: Fairly Well Kept - Behavior Psychomotor Activities: Normal Exhibits Abnormal Movement: No - Attitude and Relatedness Attitude and Relatedness: Well Related Eye Contact: Good - Speech Quality: Pressured Latencies: Short Quantity: Appropriate - Mood Patient's Decription of Mood: "Upset" - Affect Observed Affect: Tense Affect Consistent with: Dysphoria - appropriate to great disappointment - Thought Process Patient's Thought Process: Coherent, Goal Directed Thought Content: No Passive Wish, No Suicidal Planning, No Homicidal Ideation, No Paranoid Ideation - Sensorium Experiencing Hallucinations: No, Sensorium is Clear Type of Hallucinations: Visual: No, Auditory: No, Command: No - Level of Consciousness Level of Consciousness: Alert Orientation: Yes Intact, Yes Orientated to Time, Yes Orientated to Place, Yes Orientated to Person - Impulse Control Impulse Control: Intact - Insight and Judgement Insight and Judgement: Poor - Group Participation Particating in Group Activities: Yes - Medication Management Medication Management Adherence: Yes Assessment - Assessment Inpatient DSM-IV Dx: Bipolar affective disorder type 1, most recent episode mixed. Post- traumatic stress disorder, complex type. Reported history of borderline personality disorder and generalized anxiety disorder. Alcohol use disorder severe, reportedly in sustained remission with only 2 lapses over the past 2 years, also benzodiazepine use disorder and cannabinoid use disorder. Clinical Impression: Day of admission 17: Ms. Teran is a 41-year-old woman who reports a remote history of manic episode lasting 4 months. She reports that she feels that she is having manic symptoms due to Xanax that she is taking currently. She has an extensive history of alcohol use disorder leading to bad consequences for her. She is with us now because of aggressive behavior under the influence of alcohol, resulting in spitting in a police officers face and other erratic behavior. 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 She has been admitted for safety, assessment and treatment. She has agreed to a trial of Depakote along with Atarax for anxiety. She is about 55 kg and so we will start with 10 mg/kg dosing of the Depakote to about 500 mg. I have started her as well on Atarax 50 mg every 4 hours p.r.n. anxiety. She is on nicotine replacement. Aftercare is likely to be return to care at [facility]. She was quite agitated initially, but receptive to overtures to form an alliance and there are some indications that she may do well here despite initial presentation as quite anxious and agitated. We will be gathering collateral from those in the community that she permits us to. We will consider also psychological testing to help clarify diagnostic picture. We may consider with her whether referral to some sort of substance abuse treatment might be indicated due to a recent relapse, which may be understated. Day 3, 11.25.17: Still high energy and somewhat overfamiliar, but well organized with me, though I see in her interaction with nurse Lozoya, she was tearful at times. Will nubia all of her request except room change and staff pass, former to be decided by nursing staff, latter tomorrow on treatment team with input of staff who have more contact with her at that point. Discharge when manuel has lifted sufficiently. Day 5, 11.27.17: Still with lability in her presentation, but less so. Agrees to meeting with boyfriend prior to discharge. Day 6, 11.28.17: Reports feeling safe and ready for discharge. Her boyfriend agrees. She agrees to d/c Klonopin, likes hydroxyzine as anxiolytic. Plan for discharge midday tomorrow. Day 7, 11.29.17: Report of suicidality from her boyfriend has called into question her readiness for discharge contingent on reliability of his report. His report on the face of it seems reliable, as it seems unlikely he would be reporting this for the sake of keeping her in the hospital after telling us yesterday that he was glad she would discharge today, but we cannot entirely rule out that he is manipulating the situation as Ezra's mother reports. Prudence dictates delay of discharge until this situation is more settled, as the report if manipulative indicates unstable setting for discharge into apartment shared with Feliz, and if genuine indicates need for further stabilization prior to discharge. Plan - Plan Treatment Plan: Name: EZRA TERAN Birthdate: 1975 [id number] Continue meds. Monitor MS and safety. Discharge next week to continued care with community mental health providers once situation with report of suicidality to boyfriend is clarified and more settled. Medications: Current Medications Acetaminophen (Tylenol Tab*) 650 mg PO Q4H PRN PRN Reason: for pain; or Temp >101 F Last Admin: 11/29/16 09:09 Dose: 650 mg Al Hydrox/Mg Hydrox/Simethicone (Maalox Plus*) 30 ml PO Q4H PRN PRN Reason: INDIGESTION Clonazepam (Klonopin Tab(*)) 0.5 mg PO Q6H PRN PRN Reason: ANXIETY Last Admin: 11/29/16 12:07 Dose: 0.5 mg Divalproex Sodium (Depakote Er Tab(*)) 500 mg PO BEDTIME [facility] Last Admin: 11/28/16 20:37 Dose: 500 mg Divalproex Sodium (Depakote Dr Tab(*)) 125 mg PO DAILY [facility] Last Admin: 11/29/16 09:03 Dose: 125 mg Fluticasone Propionate (Flonase Nasal [place] 50mcg*) 2 spray BOTH NARES DAILY [facility] Last Admin: 11/29/16 09:03 Dose: 2 spray Hydrocortisone (Hytone Cream 1%*) 1 applic TOPICAL Q6HR [facility] Last Admin: 11/29/16 12:06 Dose: 1 applic Hydroxyzine HCl (Atarax Tab*) 50 mg PO Q4H PRN PRN Reason: ANXIETY Last Admin: 11/29/16 14:09 Dose: 50 mg Ibuprofen (Motrin Tab*) 600 mg PO Q6H PRN PRN Reason: PAIN Last Admin: 11/29/16 14:08 Dose: 600 mg Multi-Ingredient Liniment/Rub (Pedro Martinez*) 1 applic TOPICAL TID [facility] Last Admin: 11/29/16 09:04 Dose: 1 applic Multivitamins (Theragran Tab*) 1 tab PO DAILY [facility] Last Admin: 11/29/16 09:02 Dose: 1 tab Nicotine (Nicotine Inhaler*) 10 mg INH Q2H PRN PRN Reason: CRAVING Last Admin: 11/29/16 14:08 Dose: 10 mg Nicotine Polacrilex (Nicotine Gum*) 2 mg PO Q2H PRN PRN Reason: CRAVING Last Admin: 11/29/16 14:08 Dose: 2 mg Risperidone (Risperdal*) 1 mg PO BID [facility] Last Admin: 11/29/16 09:02 Dose: 1 mg Trazodone HCl (Desyrel Tab*) 50 mg PO BEDTIME [facility] Last Admin: 11/28/16 20:37 Dose: 50 mg - Discharge Plan Discharge Plan: Outpatient Follow Up Outpatient Program: [facility]
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
[2016-11-29] MEDS: Divalproex ER TAB(*) 500 MG PO SCH (20:18)
[2016-11-29] MEDS: traZODone TAB* 50 MG TAB PO SCH (20:19)
[2016-11-30] MEDS: Hydrocortisone 1% CREAM* 30 GM TUBE TOPICAL SCH ×4 (00:32→18:56)
[2016-11-30] MEDS: Fluticasone NASAL SPRAY 50MCG* 16 gm SPRAY BTL BOTH NARES SCH (08:26)
[2016-11-30] MEDS: Divalproex DR TAB(*) 125 MG PO SCH (08:26)
[2016-11-30] MEDS: Vitamin THERAPEUTIC TAB PO SCH (08:26)
[2016-11-30] MEDS: clonazePAM TAB(*) 0.5 MG PO PRN ×3 (08:27→20:23)
[2016-11-30] MEDS: hydrOXYzine HCL TAB* 50 MG PO PRN ×4 (08:27→22:51)
[2016-11-30] MEDS: risperiDONE TAB* 1 MG PO SCH ×2 (08:27→20:23)
[2016-11-30] MEDS: Ibuprofen TAB* 600 MG PO PRN ×2 (08:27→16:47)
[2016-11-30] MEDS: Analgesic BALM* 114 GM TOPICAL SCH ×2 (08:28→14:34)
[2016-11-30] MEDS: Nicotine GUM* 2 MG PO PRN ×6 (08:28→22:48)
[2016-11-30] MEDS: Nicotine Inhaler* 10 MG AMP INH PRN (10:18)
[2016-11-30] MEDS: Divalproex ER TAB(*) 500 MG PO SCH (20:23)
[2016-11-30] MEDS: traZODone TAB* 50 MG TAB PO SCH (22:46)
[2016-12-01] MEDS: Hydrocortisone 1% CREAM* 30 GM TUBE TOPICAL SCH ×4 (00:30→18:42)
[2016-12-01] MEDS: clonazePAM TAB(*) 0.5 MG PO PRN ×3 (06:14→18:29)
[2016-12-01] MEDS: Nicotine GUM* 2 MG PO PRN ×5 (06:14→22:16)
[2016-12-01] MEDS: Ibuprofen TAB* 600 MG PO PRN ×3 (06:15→18:29)
[2016-12-01] MEDS: risperiDONE TAB* 1 MG PO SCH ×2 (09:01→21:16)
[2016-12-01] MEDS: Vitamin THERAPEUTIC TAB PO SCH (09:02)
[2016-12-01] MEDS: Fluticasone NASAL SPRAY 50MCG* 16 gm SPRAY BTL BOTH NARES SCH (09:02)
[2016-12-01] MEDS: Divalproex DR TAB(*) 125 MG PO SCH (09:02)
[2016-12-01] MEDS: Analgesic BALM* 114 GM TOPICAL SCH ×3 (09:04→22:13)
[2016-12-01] MEDS: Acetaminophen TAB* 325 MG PO PRN ×3 (09:05→22:17)
[2016-12-01] MEDS: hydrOXYzine HCL TAB* 50 MG PO PRN ×3 (09:05→22:12)
[2016-12-01] MEDS: Nicotine Inhaler* 10 MG AMP INH PRN (16:19)
[2016-12-01] MEDS: Divalproex ER TAB(*) 500 MG PO SCH (21:16)
[2016-12-01] MEDS: traZODone TAB* 50 MG TAB PO SCH (21:17)
[2016-12-02] MEDS: traZODone TAB* 50 MG TAB PO SCH (00:11)
[2016-12-02] MEDS: clonazePAM TAB(*) 0.5 MG PO PRN ×3 (00:11→14:59)
[2016-12-02] MEDS: Hydrocortisone 1% CREAM* 30 GM TUBE TOPICAL SCH ×3 (00:11→11:46)
[2016-12-02] MEDS: Nicotine GUM* 2 MG PO PRN ×4 (00:12→15:58)
[2016-12-02] MEDS: risperiDONE TAB* 1 MG PO SCH (08:51)
[2016-12-02] MEDS: Vitamin THERAPEUTIC TAB PO SCH (08:51)
[2016-12-02] MEDS: Ibuprofen TAB* 600 MG PO PRN ×2 (08:52→14:59)
[2016-12-02] MEDS: Divalproex DR TAB(*) 125 MG PO SCH (08:53)
[2016-12-02] MEDS: Fluticasone NASAL SPRAY 50MCG* 16 gm SPRAY BTL BOTH NARES SCH (08:53)
[2016-12-02] MEDS: Analgesic BALM* 114 GM TOPICAL SCH ×2 (08:55→14:27)
[2016-12-02 08:56] VITALS: BP 114/76
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
[2016-12-02] MEDS: hydrOXYzine HCL TAB* 50 MG PO PRN ×2 (11:45→15:58)
[2016-12-02] MEDS: Acetaminophen TAB* 325 MG PO PRN (13:09)
[2016-12-02] MEDS: Nicotine Inhaler* 10 MG AMP INH PRN (14:30)
== END 2016-12-02 16:50 | disposition home or self-care (01) | DRG 753 ==
LOC: ED 00:49 → BSU 11:16
PROVIDERS: ADMIT Psychiatry & Neurology Psychiatry; ATTEND Psychiatry & Neurology Psychiatry
DX: F31.60 Bipolar disorder, current episode mixed, unspecified (principal); F10.21 Alcohol dependence, in remission; F43.10 Post-traumatic stress disorder, unspecified; F12.10 Cannabis abuse, uncomplicated; F19.10 Other psychoactive substance abuse, uncomplicated; Z81.8 Family history of other mental and behavioral disorders; Z79.899 Other long term (current) drug therapy
CPT/HCPCS: 36415; 80053; 80164; 80307; 80320; 80329; 81003; 84443; 84702; 85025; 85048; 90853; 99222; 99231; 99238; A9270-GY; G0480

== ENCOUNTER 2017-03-14 20:12 | Inpatient (IN) | payer OTHER ==
[2017-03-14 20:48] LABS: Urine Bilirubin Negative (Negative); Urine Glucose Negative (Negative); Urine Nitrite Negative (Negative)
[2017-03-14 21:02] LABS: Benzodiazepine Urine Screen None Detected (None Detect)
[2017-03-14 21:13] LABS: Hematocrit 40 % (35-47); Hemoglobin 13.1 g/dl (12.0-16.0); Mean Corpuscular HGB Conc 33 g/dl (31-36); Mean Corpuscular Hemoglobin 32 pg (27-31); Mean Corpuscular Volume 97 fL (80-97); Mean Platelet Volume 7 um3 (7.4-10.4); Red Blood Count 4.09 10^6/ul (4.0-5.4); Red Cell Distribution Width 15 % (10.5-15); White Blood Count 10.1 10^3/ul (3.5-10.8)
[2017-03-14] MEDS ORDERED: clonazePAM TAB(*) 1 MG PO ONE (21:24)
[2017-03-14 21:27] LABS: ALT 9 U/L (7-52); AST 14 U/L (13-39); Albumin 4.3 g/dL (3.2-5.2); Alkaline Phosphatase 43 U/L (34-104); Anion Gap 5 mmol/L (2-11); BUN/Creatinine Ratio 6.1 (8-20); Blood Urea Nitrogen 5 mg/dL (6-24); CO2 Carbon Dioxide 29 mmol/L (22-32); Calcium 8.9 mg/dL (8.6-10.3); Chloride 105 mmol/L (101-111); EGFR African American 99.8 (>60); EGFR Non-African American 77.6 (>60); Globulin 2.4 g/dL (2-4); Glucose 82 mg/dL (70-100); Potassium 3.8 mmol/L (3.5-5.0); Sodium 139 mmol/L (133-145); Total Protein 6.7 g/dL (6.4-8.9)
[2017-03-14 21:40] LABS: Acetaminophen < 15 mcg/mL; Alcohol 176 mg/dL (<10); Salicylate < 2.50 mg/dL (<30)
[2017-03-14 21:50] LABS: TSH (Thyroid Stimulating Horm) 2.11 mcIU/mL (0.34-5.60)
[2017-03-14] MEDS ORDERED: clonazePAM TAB(*) 0.5 MG PO ONE (22:00)
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
[2017-03-15] MEDS ORDERED: Ibuprofen TAB* 600 MG PO ONE (03:20)
[2017-03-15] MEDS ORDERED: Al Hydrox/Mg Hydrox/Simet LIQ* 30 ML UDC PO PRN (04:39)
[2017-03-15] MEDS: Acetaminophen TAB* 325 MG PO PRN ×2 (08:26→17:18)
[2017-03-15] MEDS: Vitamin THERAPEUTIC TAB PO SCH (09:53)
--- NOTE | 2017-03-15 10:27 | ED ---
Fran Coleman Rebecca, scribed for Ximena Beaver MD on 03/15/17 at 0330 . Progress - Progress Note Progress Note: Pt signed out from Dr. Mcmullen at 2300, pending dispo, awaiting MHE. Course/Dx - Course Course Of Treatment: Pt was signed out from Dr. Mcmullen at 2300, pending dispo, awiating MHE. Discussed with the mental health powerhouse mechanic helper who reported that the pt opted for voluntary admission due to SIs. The admission papers were signed. - Diagnoses Provider Diagnoses: Depression The documentation as recorded by the Fran johnston Rebecca accurately reflects the service I personally performed and the decisions made by Sd willis Barbara J, MD.
[2017-03-15] MEDS: hydrOXYzine HCL TAB* 25 MG PO PRN ×2 (13:59→19:01)
[2017-03-15] MEDS: Ibuprofen TAB* 400 MG PO PRN ×2 (14:45→20:37)
[2017-03-15] MEDS: Nicotine GUM* 2 MG PO PRN ×3 (14:45→20:38)
[2017-03-15] MEDS: Hydrocortisone 1% CREAM* 30 GM TUBE TOPICAL SCH ×2 (14:46→20:35)
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
[2017-03-16] MEDS: Hydrocortisone 1% CREAM* 30 GM TUBE TOPICAL SCH ×3 (08:19→19:48)
[2017-03-16] MEDS: Vitamin THERAPEUTIC TAB PO SCH (08:19)
[2017-03-16] MEDS: Ibuprofen TAB* 400 MG PO PRN ×4 (08:21→21:48)
[2017-03-16] MEDS: hydrOXYzine HCL TAB* 25 MG PO PRN ×4 (08:21→21:48)
[2017-03-16] MEDS: Nicotine GUM* 2 MG PO PRN ×5 (08:23→19:48)
--- NOTE | 2017-03-16 12:31 | ADMNOTE ---
Identification - Identify Employment Status: Unemployed Hx Psychiatric Hospitalization: Yes Arrived to Hospital Via: Ambulatory - BIB EMS History - Objective HPI: 41 y/o WF known to this unit from her previous admission BIB EMS due to suicidal ideation and state of intoxication. She presented to ED confused and disoriented requiring the admission. In the morming she cleared up and was stable mental status lorenzo. She rather was focused on control substances such as Klonopin even before the H&P. She did cooperate with the eval minimally and refused to answer essential questions. She later walked away from the room demanding a discharge AMA. Patient has a h/o polysubstance dependence and her last admission and few ED visits wewe also were in the context of intoxication. Past Medical History: Unremarkable. Exam Appearance: Thin Framed Hygiene: Normal Grooming: Fairly Well Kept Psychomotor Activities: Abnormal-Increased Exhibits Abnormal Movement: No Attitude and Relatedness: Manipulative Eye Contact: Fair - Speech Quality: Pressured Latencies: Short Quantity: Copious Patient's Decription of Mood: "Irritable" Observed Affect: Tense Affect Consistent with: Dysphoria Patient's Thought Process: Coherent, Goal Directed, Circumstantial Thought Content: No Passive Wish, No Suicidal Planning, No Homicidal Ideation, No Paranoid Ideation Experiencing Hallucinations: No, Sensorium is Clear Type of Hallucinations: Visual: No, Auditory: No, Command: No Level of Consciousness: Alert Orientation: Yes Intact, Yes Orientated to Time, Yes Orientated to Place, Yes Orientated to Person Impulse Control: Tenuous Insight and Judgement: Poor Impression - Impression Clinical Impression: 41 y/o WF with h/o substance dependence and mood disregulation was BIB EMS due to suicidal threat in the context of intoxication on ETOH and [id number] which cleared up by next morning but he mood continues to be irritable. - [place] I Mental Illness: Substance induced mood D/o. Polysubstance use d/o. R/O Bipolar d/o. - [place] III Medical Illness: No Dx Plan - Treatment Plan Continued Medication Management: Consider Medication Medications: Current Medications Acetaminophen (Tylenol Tab*) 650 mg PO Q4H PRN PRN Reason: PAIN or TEMP > 101 F Last Admin: 03/15/17 17:18 Dose: 650 mg Al Hydrox/Mg Hydrox/Simethicone (Maalox Plus*) 30 ml PO Q4H PRN PRN Reason: INDIGESTION Hydrocortisone (Hytone Cream 1%*) 1 applic TOPICAL TID [facility] Last Admin: 03/16/17 08:19 Dose: 1 applic Hydroxyzine HCl (Atarax Tab*) 25 mg PO Q4H PRN PRN Reason: for itching Last Admin: 03/16/17 08:21 Dose: 25 mg Ibuprofen (Motrin Tab*) 400 mg PO Q4H PRN PRN Reason: PAIN Last Admin: 03/16/17 08:21 Dose: 400 mg Multivitamins (Theragran Tab*) 1 tab PO DAILY [facility] Last Admin: 03/16/17 08:19 Dose: 1 tab Nicotine Polacrilex (Nicotine Gum*) 2 mg PO Q2H PRN PRN Reason: CRAVINGS Last Admin: 03/16/17 10:57 Dose: 2 mg - Discharge Plan Discharge Plan: Drug/Alcohol Rehab Outpatient Program: [facility]
--- NOTE | 2017-03-16 18:04 | PN ---
Progress Note - Progress Note Date of Service: 03/16/17 Note: Addendum: Saw patient again today per her request. Samira offered an apology for yesterday's behavior and wants to get help if she is offered and she will withdraw her AMA request. On evaluation she appears pleasent without any evidence of mood, thoughts or perceptual disturbances. Denies thoughts of harming self or others. Says she has multiple appointments with her outpatient providers and office for benefits. I dont believe she will benefit from ongoing hospitalization on a mental health unit rather should be refered to a rehab program and be discharged soon.
[2017-03-17 08:11] VITALS: BP 106/77
[2017-03-17] MEDS: Nicotine GUM* 2 MG PO PRN ×2 (08:18→12:11)
[2017-03-17] MEDS: hydrOXYzine HCL TAB* 25 MG PO PRN (08:18)
[2017-03-17] MEDS: Ibuprofen TAB* 400 MG PO PRN (08:18)
[2017-03-17] MEDS: Hydrocortisone 1% CREAM* 30 GM TUBE TOPICAL SCH (08:19)
[2017-03-17] MEDS: Vitamin THERAPEUTIC TAB PO SCH (08:19)
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
--- NOTE | 2017-03-17 11:27 | PN ---
[facility]: Group Therapy Note - Service Type Service Type: 20892 Group Psychotherapy - Cognitive Behavioral Group Therapy ( CBT):Patient was attentive and participatory in CBT programming this morning, and remained in good behavioral control. Patient expressed positive insights regarding relevant treatment interventions and goals.
== END 2017-03-17 12:15 | disposition home or self-care (01) | DRG 775 ==
LOC: ED 20:12 → BSU 03-15 04:26
PROVIDERS: ADMIT Psychiatry & Neurology Psychiatry; ATTEND Psychiatry & Neurology Psychiatry
DX: F10.14 Alcohol abuse with alcohol-induced mood disorder (principal); F19.10 Other psychoactive substance abuse, uncomplicated; Y90.6 Blood alcohol level of 120-199 mg/100 ml
CPT/HCPCS: 36415; 80053; 80307; 80320; 80329; 81003; 84443; 84702; 85025; 90853; 99222; 99238; A9270-GY; G0480

== ENCOUNTER 2017-09-15 15:42 | Inpatient (IN) | payer MEDICAID, OTHER ==
[2017-09-15 18:11] LABS: ABS Basophils 0.1 10^3/ul (0-0.2); ABS Eosinophils 1.3 10^3/ul (0-0.6); ABS Lymphocytes 1.5 10^3/ul (1.0-4.8); ABS Monocytes 0.7 10^3/ul (0-0.8); ABS Neutrophils 12.2 10^3/ul (1.5-7.7); ABS Nucleated RBC 0 10^3/ul; Eosinophil % 8.3 % (0-6); Hematocrit 42 % (35-47); Hemoglobin 13.9 g/dl (12.0-16.0); Lymphocyte % 9.5 % (25-47); Mean Corpuscular HGB Conc 33 g/dl (31-36); Mean Corpuscular Hemoglobin 33 pg (27-31); Mean Corpuscular Volume 97 fL (80-97); Mean Platelet Volume 7 um3 (7.4-10.4); Nucleated Red Blood Cells % 0; Platelet Count 339 10^3/ul (150-450); Red Blood Count 4.27 10^6/ul (4.0-5.4); Red Cell Distribution Width 15 % (10.5-15); White Blood Count 15.8 10^3/ul (3.5-10.8)
[2017-09-15 18:26] LABS: EGFR Non-African American 76.1 (>60)
[2017-09-15] MEDS ORDERED: NS 0.9% 1000 ML*IV.FLUID IV ONE (20:07)
[2017-09-15] MEDS ORDERED: Ketorolac INJ* 30 MG/ML 1 ML VIAL IV ONE (20:07)
[2017-09-15] MEDS ORDERED: Levofloxacin 750 MG IVPREMIX(* 750 MG/150 ML BAG IVPB ONE (20:09)
[2017-09-15] MEDS ORDERED: Ondansetron INJ* 2 MG/ML VIAL IV ONE (20:19)
[2017-09-15] MEDS ORDERED: Morphine INJ* 4 MG/ML 1 ML CARPUJECT IV ONE (20:19)
[2017-09-15] MEDS ORDERED: Morphine INJ* 2 MG/ML 1 ML SYRINGE (TWO MG - NEW SYRINGE VERSION) ONE (20:40)
--- NOTE | 2017-09-15 20:45 | ED ---
Skin Complaint - HPI Summary HPI Summary: 42F presents with possible skin infection for past two weeks. She states in the past week that she has been on an antibiotic prescribed by the [facility] and it has gotten worst. She has history of ezcema but it has never been this bad. She states she has been on prednisone for past week. She states that she is in extreme pain. She states that there has been no new products. She was in [place] and got stuck by a bunch of cacti and felt that she had an allergic reaction to such. She denies any fever but admits to chills. She states anything touching her skin is very painful. She states the legs are her worst and the area has been oozing. She tried tyenlol without relief. She does not have a primary. She is not on lithium. - History of Current Complaint Chief Complaint: EDRashSkinAbscess Time Seen by Provider: 09/15/17 19:51 Stated Complaint: SKIN IRRITATION Hx Last Menstrual Period: Pain Intensity: 9 - Additional Pertinent History Primary Care Physician: GENESIS - Allergy/Home Medications Allergies/Adverse Reactions: Allergies Allergy/AdvReac Type Severity Reaction Status Date / Time Quetiapine [From Seroquel] Allergy PROFOUND Verified 09/15/17 21:48 DEPRESSION Codeine AdvReac Intermediate Nausea And Verified 09/15/17 21:48 Vomiting Gabapentin [From Neurontin] AdvReac Dizziness Verified 09/15/17 21:48 PMH/Surg Hx/FS Hx/Imm Hx Endocrine/Hematology History: Denies: Hx Diabetes, Hx Thyroid Disease Cardiovascular History: Denies: Hx Hypertension Respiratory History: Denies: Hx Asthma, Hx Chronic Obstructive Pulmonary Disease (COPD) GI History: Denies: Hx Ulcer History: Denies: Hx Acute Renal Failure, Hx Benign Prostatic Hyperplasia, Hx Chronic Renal Failure, Hx Dialysis, Hx Kidney Infection, Hx Kidney Stones, Other Problems/Disorders Musculoskeletal History: Reports: Hx Back Problems - upper back and neck pain Sensory History: Reports: Hx Contacts or Glasses Denies: Hx Hearing Aid Opthamlomology History: Reports: Hx Contacts or Glasses Psychiatric History: Reports: Hx Anxiety, Hx Depression, Hx Panic Disorder, Hx Post Traumatic Stress Disorder, Hx Inpatient Treatment, Hx Community Mental Health Tx, Hx Bipolar Disorder, Hx Substance Abuse Denies: Hx Eating Disorder, Hx of Violent Episodes Against Others - Cancer History Hx Chemotherapy: No Hx Radiation Therapy: No - Surgical History Surgery Procedure, Year, and Place: wisdom teeth Infectious Disease History: No Infectious Disease History: Reports: Hx Shingles - 2004 Denies: Hx Clostridium Difficile, Hx Hepatitis, Hx Human Immunodeficiency Virus (HIV), Hx of Known/Suspected MRSA, Hx Tuberculosis, Hx Known/Suspected VRE , Hx Known/Suspected VRSA, History Other Infectious Disease, Traveled Outside the [place] in Last 30 Days - Family History Known Family History: Positive: Hypertension Family History: PT LEFT AMA BEFORE FAMILY HISTORY COULD BE DETERMINED - Social History Alcohol Use: Rare Alcohol Amount: Sober since 09/28/13 Substance Use Type: Reports: Marijuana Substance Use Comment - Amount & Last Used: unknown Smoking Status (MU): Light Every Day Tobacco Smoker Type: Cigarettes Amount Used/How Often: 3 a day Length of Time of Smoking/Using Tobacco: since age 22 Have You Smoked in the Last Year: Yes Review of Systems Positive: Chills. Negative: Fever Negative: Chest Pain Negative: Shortness Of Breath Positive: Rash All Other Systems Reviewed And Are Negative: Yes Physical Exam Triage Information Reviewed: Yes Vital Signs On Initial Exam: Initial Vitals Temp Pulse Resp BP Pulse Ox 98.3 F 109 20 108/79 99 09/15/17 15:49 09/15/17 15:49 09/15/17 15:49 09/15/17 15:49 09/15/17 15:49 Vital Signs Reviewed: Yes Appearance: Positive: Well-Appearing Skin: Positive: Other - cellulitic like rash that is weeping on lower leg, erythema and flaky skin to chest and back that is warm to touch Head/Face: Positive: Normal Head/Face Inspection Eyes: Positive: Normal, EOMI, DENISSE, Conjunctiva Clear ENT: Positive: Normal ENT inspection, Pharynx normal, TMs normal Respiratory/Lung Sounds: Positive: Clear to Auscultation, Breath Sounds Present Cardiovascular: Positive: Normal, RRR Musculoskeletal: Positive: Normal Neurological: Positive: Normal - [place] Coma Scale Coma Scale Total: 15 Diagnostics - Vital Signs Vital Signs Temp Pulse Resp BP Pulse Ox 09/15/17 20:35 97 09/15/17 17:21 98.6 F 108 12 100/62 100 09/15/17 15:50 98.9 F 104 16 110/62 98 09/15/17 15:49 98.3 F 109 20 108/79 99 - Laboratory Lab Results: Lab Results 09/15/17 09/15/17 09/15/17 Range/Units 18:00 18:00 20:10 WBC 15.8 H (3.5-10.8) 10^3/ul RBC 4.27 (4.0-5.4) 10^6/ul Hgb 13.9 (12.0-16.0) g/dl Hct 42 (35-47) % MCV 97 (80-97) fL MCH 33 H (27-31) pg MCHC 33 (31-36) g/dl RDW 15 (10.5-15) % Plt Count 339 (150-450) 10^3/ul MPV 7 L (7.4-10.4) um3 Neut % (Auto) 77.4 (38-83) % Lymph % (Auto) 9.5 L (25-47) % [place] % (Auto) 4.4 (1-9) % Eos % (Auto) 8.3 H (0-6) % Baso % (Auto) 0.4 (0-2) % Absolute Neuts (auto) 12.2 H (1.5-7.7) 10^3/ul Absolute Lymphs (auto) 1.5 (1.0-4.8) 10^3/ul Absolute Monos (auto) 0.7 (0-0.8) 10^3/ul Absolute Eos (auto) 1.3 H (0-0.6) 10^3/ul Absolute Basos (auto) 0.1 (0-0.2) 10^3/ul Absolute Nucleated RBC 0 10^3/ul Nucleated RBC % 0 Sodium 128 L (133-145) mmol/L Potassium 4.8 (3.5-5.0) mmol/L Chloride 97 L (101-111) mmol/L Carbon Dioxide 27 (22-32) mmol/L Anion Gap 4 (2-11) mmol/L BUN 11 (6-24) mg/dL Creatinine 0.83 (0.51-0.95) mg/dL Est GFR ( Amer) 97.9 (>60) Est GFR (Non-Af Amer) 76.1 (>60) BUN/Creatinine Ratio 13.3 (8-20) Glucose 114 H (70-100) mg/dL Lactic Acid 2.4 H* (0.5-2.0) mmol/L Calcium 7.9 L (8.6-10.3) mg/dL Total Bilirubin 0.30 (0.2-1.0) mg/dL AST 22 (13-39) U/L ALT 13 (7-52) U/L Alkaline Phosphatase 86 (34-104) U/L C-Reactive Protein 80.85 H (< 5.00) mg/L Total Protein 5.6 L (6.4-8.9) g/dL Albumin 3.2 (3.2-5.2) g/dL Globulin 2.4 (2-4) g/dL Albumin/Globulin Ratio 1.3 (1-3) Result Diagrams: 09/15/17 18:00 09/15/17 18:00 Lab Statement: Any lab studies that have been ordered have been reviewed, and results considered in the medical decision making process. Course/Dx - Course Course Of Treatment: 42F presents with possible skin infection for past two weeks. She states in the past week that she has been on an antibiotic prescribed by the [facility] and it has gotten worst. She has history of ezcema but it has never been this bad. She states she has been on prednisone for past week. She states that she is in extreme pain. She states that there has been no new products. She was in [place] and got stuck by a bunch of cacti and felt that she had an allergic reaction to such. She denies any fever but admits to chills. She states anything touching her skin is very painful. She states the legs are her worst and the area has been oozing. She tried tyenlol without relief. She does not have a primary. She is not on lithium. on exam has cellulitic type rash on legs. on abdomen and chest has flaky erythematous skin that is warm to the touch. patient friend keeps complaining of not giving enough pain medication. wbc 15 and lactic 2.1. discussed case with dr hall who agrees to admit. - Differential Diagnoses - Skin Complaint Differential Diagnoses: Cellulitis, Contact Dermatitis, Eczema - Diagnoses Provider Diagnoses: Cellulitis, Eczema Discharge - Discharge Plan Condition: Stable Disposition: ADMITTED TO [facility]
[2017-09-15] MEDS ORDERED: Morphine INJ* 2 MG/ML 1 ML SYRINGE (TWO MG - NEW SYRINGE VERSION) IV ONE (20:46)
[2017-09-15] MEDS ORDERED: Acetaminophen TAB* 325 MG PO PRN (21:39)
[2017-09-15] MEDS ORDERED: NS 0.9% 1000 ML* 2,000 ML IV ONE (21:39)
[2017-09-15] MEDS ORDERED: Vancomycin per Pharmacy* NOTE FOLLOW UP PRN (21:47)
[2017-09-15] MEDS ORDERED: predniSONE TAB* 20 MG PO SCH (22:00)
[2017-09-15] MEDS: Morphine INJ* 10 MG/ML 1 ML CARPUJECT IV PRN (22:25)
[2017-09-15] MEDS ORDERED: Vancomycin(*) 1,000 MG in NS 0.9% 250 ML* 250 ML IVPB ONE (22:30)
[2017-09-15] MEDS: Cefepime 2 GM in Dextrose(*) 2 GM/50 ML BAG IV SCH (23:15)
[2017-09-15] MEDS: MOISTURIZING TOPICAL SCH (23:15)
[2017-09-15] MEDS: diPHENhydraMINE PO* 50 MG PO PRN (23:17)
[2017-09-15] MEDS: clonazePAM TAB(*) 1 MG PO SCH (23:17)
[2017-09-15] MEDS: traMADol TAB* 50 MG PO PRN (23:17)
[2017-09-16] MEDS ORDERED: Mouth Piece, Nicotine* 1 EACH CARTRIDGE ONE (01:30)
[2017-09-16] MEDS ORDERED: Nicotine Inhaler* 10 MG AMP ONE (01:32)
[2017-09-16] MEDS: Nicotine Inhaler* 10 MG AMP INH PRN ×2 (01:34→07:50)
[2017-09-16] MEDS: LORazepam TAB(*) 0.5 MG PO PRN ×3 (01:38→18:13)
[2017-09-16] MEDS ORDERED: Mouth Piece, Nicotine* 1 EACH CARTRIDGE INH ONE (02:00)
[2017-09-16] MEDS: NS 0.9% 1000 ML* 1,000 ML IV SCH ×2 (02:05→16:07)
[2017-09-16] MEDS: Morphine INJ* 10 MG/ML 1 ML CARPUJECT IV PRN ×3 (03:24→18:12)
[2017-09-16 05:17] LABS: ABS Basophils 0 10^3/ul (0-0.2); ABS Eosinophils 1.4 10^3/ul (0-0.6); ABS Lymphocytes 1.5 10^3/ul (1.0-4.8); ABS Monocytes 0.5 10^3/ul (0-0.8); ABS Neutrophils 6.1 10^3/ul (1.5-7.7); ABS Nucleated RBC 0 10^3/ul; Eosinophil % 14.7 % (0-6); Hematocrit 35 % (35-47); Hemoglobin 11.8 g/dl (12.0-16.0); Lymphocyte % 15.9 % (25-47); Mean Corpuscular HGB Conc 33 g/dl (31-36); Mean Corpuscular Hemoglobin 33 pg (27-31); Mean Corpuscular Volume 98 fL (80-97); Mean Platelet Volume 8 um3 (7.4-10.4); Nucleated Red Blood Cells % 0; Platelet Count 261 10^3/ul (150-450); Red Cell Distribution Width 16 % (10.5-15); White Blood Count 9.6 10^3/ul (3.5-10.8)
[2017-09-16 05:20] LABS: INR 1.01 (0.77-1.02)
[2017-09-16 05:50] LABS: EGFR Non-African American 77.2 (>60)
--- NOTE | 2017-09-16 05:53 | HP ---
CC: [facility] * HISTORY AND PHYSICAL: DATE OF ADMISSION: 09/15/17 PRIMARY CARE PROVIDER: [facility]. ATTENDING PHYSICIAN WHILE IN THE HOSPITAL: Sixto Mejia MD * (report dictated by Krista Tolentino NP) CHIEF COMPLAINT: Rash. HISTORY OF PRESENT ILLNESS: Ms. Corona is a 42-year-old female patient giving history of anxiety, depression, bipolar disorder, and PTSD. She comes into the ED today. She says the last May, she was diagnosed with eczema. She also had shingles and this was a year ago last May 2016. She says that she was following with the [facility] for this. She was placed on creams and since then the rash has spread mostly to her shoulders and her arms, but over the last week and half, she has had significant worsening of the rash diffusely on her trunk to her arms to her legs. There has been sparing of the palms and soles she says. There have not been any sores in the mouth and no pain in the eyes or redness of the eyes. She has been itching. She says the rash itches severely. She has been trying to put coconut oil, different types of oil. She has also been on steroids. She has been taking Benadryl and also recently prescribed Bactrim. She went to the [facility] and was transferred here today to be evaluated because of the severity of the rash. She says that she really has not had any formal dermatologic followup. She does state that she is homeless. [facility] She says that the itching is all the time. She says the only change in her meds has been the Bactrim recently and also the steroid. She says she has not had any fevers or chills. No chest pain. She says that rash does not really hurt. She denies having any blistering with the exception of where she has been scratching and she says that itches mostly on her sacral area. She came into the ED today, was noted that she had an elevated white count. She is a little tachycardiac. There was concern that she may have a superimposed cellulitis and diffuse rash. We were asked to evaluate for admission. PAST MEDICAL HISTORY: Significant for: 1. Anxiety. 2. Depression. 3. Bipolar disorder. 4. PTSD. PAST SURGICAL HISTORY: Denied. HOME MEDICATIONS: According to her recall now only include Klonopin 2 mg p.o. b.i.d. ALLERGIES: She is allergic to SEROQUEL, CODEINE, and GABAPENTIN. FAMILY HISTORY: Mother had a history of mental health disorders. Father's history is unknown. SOCIAL HISTORY: The patient is a smoker. She is smoking about five cigarettes a day. She has been smoking for 20 years. She does not drink alcohol. Again, her surrogate decision maker is her boyfriend. She does reside at the [place] here. REVIEW OF SYSTEMS: There is no documented fever. She denied having any significant weight change. No double vision. No ear discharge. Denied having any rhinorrhea. No sore throat. No thyroid enlargement. Denied having any chest pain. There was no orthopnea. No nocturnal dyspnea. There was no abdominal pain. No nausea, no vomiting. No dysuria. There was no frequency. No seizure. No loss of consciousness. There is pruritus and rash per my HPI. PHYSICAL EXAMINATION GENERAL: At this time, Ms. Corona is a 42-year-old female patient, she is sitting in the ED stretcher. She does not appear to be in any acute distress. VITAL SIGNS: Blood pressure 100/62, pulse 108, respirations 12, O2 sat 100%, and temperature 98.6. HEENT: Head: Atraumatic. Eyes: Sclerae is anicteric, not pale. Throat: Oral mucosa appears to be dry. No oropharyngeal erythema. There were no sores noted within the mouth. NECK: Supple. LUNGS: Clear to auscultation bilaterally. No wheezes, rales, or rhonchi. HEART: Sounds S1 and S2. She had a regular rate and rhythm. There were no murmurs, rubs, or gallops. ABDOMEN: Soft, flat, nontender. Bowel sounds are present. EXTREMITIES: Pulses were 2+ throughout. She had no peripheral edema. She is moving all 4 extremities with 5/5 strength. NEUROLOGIC: She is awake, alert and oriented x3. No gross focal deficits. SKIN: She does have areas of abrasions noted to her lower extremities and into her sacrum. She also has abrasions noted to her bilateral upper extremities. She has a significant amount of erythema and warmth noted to the right antecubital area. She has diffuse erythema that has blanchable. She had a negative sliding skin sign. The patient did have sparing of the palms. There was no sores noted in the mouth. Sparing of the soles of the feet, but there was a diffuse rash basically from her neck, entire trunk, arms, and legs. She did have significant amount of dry skin at this point as well. LABORATORY DATA: Labs today, WBC of 15.8, RBC of 4.27, hemoglobin of 13.9, hematocrit 42, platelet count of 339. Her sodium was 128, potassium 4.8, chloride 97, bicarb 27, BUN 11, creatinine of 0.83, glucose 114, lactate 2.4, calcium 7.9. Total bilirubin 0.3, AST 22, ALT 13, alk phos 86, albumin is 3.2. Old medical records were reviewed. ASSESSMENT AND PLAN: Ms. Corona is a 42-year-old female patient coming into the ED today with complaints of diffuse rash, itching, and pain associated with it. We were asked to evaluate for admission. She will be admitted under inpatient status for: 1. Rash. It appears that it could be diffuse eczema, severe case, it is blanchable. She does appear to have overlying cellulitis with this, particularly to the right upper arm and the lower extremities probably from her abrasions from itching. She says it has been itching so much. My plan will be to go ahead and put her on [place] t.i.d. I am going to consult with our dermatopathologist to evaluate to see if we could get a punch biopsy of this. I am going to put her again on hydrating creams and I am going to give her vanco and cefepime for overlying infection. She has meeting SIRS criteria. She has received 3 L of fluid down here in the ED. We will go ahead and check blood cultures and we will continue to follow this closely. 2. For her anxiety and depression, I did order meds as described. 3. Bipolar and posttraumatic stress disorder disease. Continue with supportive care. 4. DVT prophylaxis. I ordered SCDs. 5. Code status. Full code. 6. Fluids, electrolytes, and nutrition. Regular diet. TIME SPENT: On admission was 60 minutes, greater than half the time was spent face- to-face with the patient obtaining history and physical, other half time was spent going over the plan of care with the patient and implementing plan of care. I did discuss the plan of care with my attending, Dr. Mejia; he is in agreement. KRISTA TOLENTINO NP [id number]/CPS #: [id number] [place]TD[place]
[2017-09-16] MEDS: Vancomycin(*) 1,000 MG in NS 0.9% 250 ML* 250 ML IVPB SCH ×2 (07:50→15:17)
[2017-09-16] MEDS: traMADol TAB* 50 MG PO PRN ×3 (07:50→23:38)
[2017-09-16] MEDS: MOISTURIZING TOPICAL SCH ×3 (07:51→21:17)
[2017-09-16] MEDS: clonazePAM TAB(*) 1 MG PO SCH ×2 (07:51→21:09)
[2017-09-16] MEDS: diPHENhydraMINE PO* 50 MG PO PRN ×3 (07:51→23:38)
[2017-09-16] MEDS: Cefepime 2 GM in Dextrose(*) 2 GM/50 ML BAG IV SCH ×2 (10:55→23:39)
--- NOTE | 2017-09-16 14:39 | PN ---
Subjective Date of Service: 09/16/17 Interval History: Pt examined today at the bedside. States that she has had some improvement today. Denies chest pain and denies sob. States she does not have any sores in her mouth. States her legs are weeping. ROS-denies fever, denies chest pain, denies chills, denies abdominal pain, denies nausea, denies vomiting, denies lightheadedness, denies loc, review of 11 systems completed all others negative, Objective Active Medications: Acetaminophen (Tylenol Tab*) 650 mg PO Q4H PRN PRN Reason: FEVER/PAIN Clonazepam (Klonopin Tab(*)) 2 mg PO BID [facility] Last Admin: 09/16/17 07:51 Dose: 2 mg Diphenhydramine HCl (Benadryl Po*) 50 mg PO Q6H PRN PRN Reason: ITCHING Last Admin: 09/16/17 14:02 Dose: 50 mg Sodium Chloride (Ns 0.9% 1000 Ml*) 1,000 mls @ 125 mls/hr IV PER RATE [facility] Stop: 09/17/17 05:44 Last Admin: 09/16/17 02:05 Dose: 125 mls/hr Cefepime HCl (Maxipime 2 Gm In Dextrose Duplex (*)) 2 gm in 50 mls @ 100 mls/ hr IV Q12H [facility] Last Admin: 09/16/17 10:55 Dose: 100 mls/hr Vancomycin HCl 1,000 mg/ (Sodium Chloride) 250 mls @ 166.667 mls/hr IVPB Q8H [facility] Last Admin: 09/16/17 07:50 Dose: 166.667 mls/hr Lorazepam (Ativan Tab(*)) 0.5 mg PO Q6H PRN PRN Reason: ANXIETY Last Admin: 09/16/17 10:51 Dose: 0.5 mg Morphine Sulfate (Morphine Inj (Syringe)*) 5 mg IV Q6H PRN PRN Reason: PAIN Last Admin: 09/16/17 10:50 Dose: 5 mg Multi-Ingredient Ointment (Hydrocerin Cream*) 1 applic TOPICAL TID YANIV Last Admin: 09/16/17 07:51 Dose: 1 applic Nicotine (Nicotine Inhaler*) 10 mg INH Q2H PRN PRN Reason: CRAVING Last Admin: 09/16/17 07:50 Dose: 10 mg Pharmacy Consult (Vancomycin Per Pharmacy*) 1 note FOLLOW UP . PRN PRN Reason: PER PROTOCOL Pharmacy Profile Note (Vancomycin Trough Check) 1 note FOLLOW UP 729 ONE Stop: 09/17/17 07:31 Tramadol HCl (Ultram*) 50 mg PO Q8H PRN PRN Reason: PAIN Last Admin: 09/16/17 07:50 Dose: 50 mg Vital Signs - 8 hr 09/16/17 09/16/17 09/16/17 07:42 07:50 07:51 Temperature 98.0 F Pulse Rate 87 Respiratory 18 18 18 Rate Blood Pressure 89/45 (mmHg) O2 Sat by Pulse 89 Oximetry 09/16/17 09/16/17 09/16/17 07:56 10:37 10:50 Temperature Pulse Rate Respiratory 18 18 16 Rate Blood Pressure (mmHg) O2 Sat by Pulse 98 Oximetry 09/16/17 09/16/17 09/16/17 10:51 11:55 13:53 Temperature Pulse Rate Respiratory 16 16 16 Rate Blood Pressure (mmHg) O2 Sat by Pulse Oximetry 09/16/17 14:02 Temperature Pulse Rate Respiratory 16 Rate Blood Pressure (mmHg) O2 Sat by Pulse Oximetry Oxygen Devices in Use Now: None Appearance: 42 y/o female patient sitting in bed, NAD, Eyes: No Scleral Icterus, PERRLA Ears/Nose/Mouth/Throat: - - no sores noted in mouth, Respiratory: Symmetrical Chest Expansion and Respiratory Effort, Clear to Auscultation Cardiovascular: NL Sounds; No Murmurs; No JVD Abdominal: NL Sounds; No Tenderness; No Distention Skin: - - diffuse errythma, blanchable, abrasions noted to legs, no blisters noted, palms and soles spared, Neurological: Alert and Oriented x 3 Lines/Tubes/Other Access: Clean, Dry and Intact Peripheral IV Result Diagrams: 09/16/17 04:29 09/16/17 04:29 Additional Lab and Data: Lab Results 09/15/17 09/15/17 09/15/17 Range/Units 18:00 18:00 20:10 WBC 15.8 H (3.5-10.8) 10^3/ul RBC 4.27 (4.0-5.4) 10^6/ul Hgb 13.9 (12.0-16.0) g/dl Hct 42 (35-47) % MCV 97 (80-97) fL MCH 33 H (27-31) pg MCHC 33 (31-36) g/dl RDW 15 (10.5-15) % Plt Count 339 (150-450) 10^3/ul MPV 7 L (7.4-10.4) um3 Neut % (Auto) 77.4 (38-83) % Lymph % (Auto) 9.5 L (25-47) % [place] % (Auto) 4.4 (1-9) % Eos % (Auto) 8.3 H (0-6) % Baso % (Auto) 0.4 (0-2) % Absolute Neuts (auto) 12.2 H (1.5-7.7) 10^3/ul Absolute Lymphs (auto) 1.5 (1.0-4.8) 10^3/ul Absolute Monos (auto) 0.7 (0-0.8) 10^3/ul Absolute Eos (auto) 1.3 H (0-0.6) 10^3/ul Absolute Basos (auto) 0.1 (0-0.2) 10^3/ul Absolute Nucleated RBC 0 10^3/ul Nucleated RBC % 0 Sodium 128 L (133-145) mmol/L Potassium 4.8 (3.5-5.0) mmol/L Chloride 97 L (101-111) mmol/L Carbon Dioxide 27 (22-32) mmol/L Anion Gap 4 (2-11) mmol/L BUN 11 (6-24) mg/dL Creatinine 0.83 (0.51-0.95) mg/dL Est GFR ( Amer) 97.9 (>60) Est GFR (Non-Af Amer) 76.1 (>60) BUN/Creatinine Ratio 13.3 (8-20) Glucose 114 H (70-100) mg/dL Lactic Acid 2.4 H* (0.5-2.0) mmol/L Calcium 7.9 L (8.6-10.3) mg/dL Total Bilirubin 0.30 (0.2-1.0) mg/dL AST 22 (13-39) U/L ALT 13 (7-52) U/L Alkaline Phosphatase 86 (34-104) U/L C-Reactive Protein 80.85 H (< 5.00) mg/L Total Protein 5.6 L (6.4-8.9) g/dL Albumin 3.2 (3.2-5.2) g/dL Globulin 2.4 (2-4) g/dL Albumin/Globulin Ratio 1.3 (1-3) Microbiology and Other Data: Microbiology 09/15/17 22:45 Nasal Screen MRSA (PCR)(MADYSON) - Final Nasal Mrsa Negative Assess/Plan/Problems-Billing Assessment: 42 y/o female patient [place] [facility] complaints of a diffuse rash and puritis ? overlying infection. - Patient Problems (1) Atopic dermatitis Current Visit: Yes Status: Acute Priority: High Comment: Continue lotion, consult placed with pathology for punch biposy, iv steriods, supprotive care (2) Cellulitis Current Visit: Yes Status: Acute Priority: High Comment: Iv abx for now, vanco, cefepime, (3) FEN Current Visit: Yes Status: Acute Priority: High Comment: Regular diet (4) DVT prophylaxis Current Visit: Yes Status: Acute Priority: High Comment: scd (5) Bipolar disorder Current Visit: Yes Status: Acute Priority: High Comment: supportive care (6) PTSD (post-traumatic stress disorder) Current Visit: Yes Status: Acute Priority: High Comment: Supportive care, (7) Depression Current Visit: Yes Status: Acute Priority: High Comment: Supportive care (8) Anxiety Current Visit: Yes Status: Acute Priority: High Comment: COntinue home medications Status and Disposition: inpatient for iv abx, pending path consult,
[2017-09-16] MEDS ORDERED: methylPREDNISolone 125 MG* 2 ML VIAL IV ONE (14:40)
[2017-09-16] MEDS: methylPREDNISolone SOD 40 MG* 1 ML VIAL IV SCH (21:17)
[2017-09-17] MEDS: Vancomycin(*) 1,000 MG in NS 0.9% 250 ML* 250 ML IVPB SCH ×2 (00:41→10:08)
[2017-09-17] MEDS: Morphine INJ* 10 MG/ML 1 ML CARPUJECT IV PRN ×4 (03:42→22:22)
[2017-09-17] MEDS: LORazepam TAB(*) 0.5 MG PO PRN ×4 (03:42→22:23)
[2017-09-17] MEDS: methylPREDNISolone SOD 40 MG* 1 ML VIAL IV SCH ×3 (05:25→22:22)
[2017-09-17] MEDS: diPHENhydraMINE PO* 50 MG PO PRN ×3 (05:25→22:23)
[2017-09-17] MEDS ORDERED: Vancomycin Trough Check NOTE FOLLOW UP ONE (07:30)
[2017-09-17] MEDS: traMADol TAB* 50 MG PO PRN ×3 (08:13→23:26)
[2017-09-17] MEDS: clonazePAM TAB(*) 1 MG PO SCH ×2 (08:13→20:24)
[2017-09-17] MEDS: Nicotine Inhaler* 10 MG AMP INH PRN (08:13)
[2017-09-17 08:59] LABS: EGFR Non-African American 104.7 (>60)
[2017-09-17 09:32] LABS: Vancomycin Trough 13.8 mcg/mL
[2017-09-17 09:47] LABS: Hematocrit 35 % (35-47); Hemoglobin 11.8 g/dl (12.0-16.0); Mean Corpuscular HGB Conc 34 g/dl (31-36); Mean Corpuscular Hemoglobin 33 pg (27-31); Mean Corpuscular Volume 99 fL (80-97); Mean Platelet Volume 9 um3 (7.4-10.4); Platelet Count 126 10^3/ul (150-450); Red Blood Count 3.56 10^6/ul (4.0-5.4); Red Cell Distribution Width 16 % (10.5-15); White Blood Count 10.2 10^3/ul (3.5-10.8)
--- NOTE | 2017-09-17 09:47 | PN ---
Subjective Date of Service: 09/17/17 Interval History: Patient seen and examined at bedside. Denies fever, shortness of breath, chest discomfort, N/V/D. Pt reports pain all over due to her rash, itchy skin, dry skin on her legs, and chills. Pt states that she has been having intermittent rashes for over a year. She reports that the rash is worse with stress, and she has been feeling very stressed recently. Family History: Unchanged from Admission Social History: Unchanged from Admission Past Medical History: Unchanged from Admission Objective Active Medications: Acetaminophen (Tylenol Tab*) 650 mg PO Q4H PRN Reason: FEVER/PAIN Clonazepam (Klonopin Tab(*)) 2 mg PO BID YANIV Diphenhydramine HCl (Benadryl Po*) 50 mg PO Q6H PRN Reason: ITCHING Cefepime HCl (Maxipime 2 Gm In Dextrose Duplex (*)) 2 gm in 50 mls @ 100 mls/ hr IV Q12H YANIV Vancomycin HCl 1,000 mg/ (Sodium Chloride) 250 mls @ 166.667 mls/hr IVPB Q8H YANIV Lorazepam (Ativan Tab(*)) 0.5 mg PO Q6H PRN Reason: ANXIETY Methylprednisolone Sodium Succinate (Solu-Medrol 40 Mg) 40 mg IV Q8HR YANIV Morphine Sulfate (Morphine Inj (Syringe)*) 5 mg IV Q6H PRN Reason: PAIN Multi-Ingredient Ointment (Hydrocerin Cream*) 1 applic TOPICAL TID YANIV Nicotine (Nicotine Inhaler*) 10 mg INH Q2H PRN Reason: CRAVING Pharmacy Consult (Vancomycin Per Pharmacy*) 1 note FOLLOW UP . PRN Reason: PER PROTOCOL Tramadol HCl (Ultram*) 50 mg PO Q8H PRN Reason: PAIN Vital Signs - 8 hr 09/17/17 09/17/17 09/17/17 01:45 03:42 05:25 Respiratory 16 16 16 Rate 09/17/17 09/17/17 05:44 08:13 Respiratory 16 16 Rate Oxygen Devices in Use Now: None Appearance: NAD, sitting up in bed Ears/Nose/Mouth/Throat: Mucous Membranes Moist Respiratory: Symmetrical Chest Expansion and Respiratory Effort, Clear to Auscultation Cardiovascular: NL Sounds; No Murmurs; No JVD, RRR Abdominal: NL Sounds; No Tenderness; No Distention Extremities: No Edema Skin: - - Diffuse errythema rash, blanchable with abrasions noted to legs. No blisters and palms and soles spared. Neurological: Alert and Oriented x 3, NL Muscle Strength and Tone Lines/Tubes/Other Access: Clean, Dry and Intact Peripheral IV - site benign Nutrition: Taking PO's Result Diagrams: 09/17/17 08:25 09/17/17 08:25 Additional Lab and Data: Microbiology and Other Data: Microbiology 09/15/17 22:45 Nasal Screen MRSA (PCR)(MADYSON) - Final Nasal Mrsa Negative Assess/Plan/Problems-Billing Assessment: Ms. Corona is a 42 y/o female patient who presented to the emergency room with complaints of a diffuse rash and puritis with a ? overlying infection. - Patient Problems (1) Cellulitis Code(s): L03.90 - CELLULITIS, UNSPECIFIED SNOMED Code(s): 990247550 Comment: - ID consult, pending - Continue IV vanco and cefepime (2) Atopic dermatitis Code(s): L20.9 - ATOPIC DERMATITIS, UNSPECIFIED SNOMED Code(s): 55283393 Comment: - S/P punch biopsy and pending pathology results - Continue lotion, iv steriods, and supprotive care (3) Thrombocytopenia Code(s): D69.6 - THROMBOCYTOPENIA, UNSPECIFIED SNOMED Code(s): 013463948 Comment: - Suspect this may be a lab error, will recheck labs this AM (4) Anxiety Code(s): F41.9 - ANXIETY DISORDER, UNSPECIFIED SNOMED Code(s): 27095674 Comment: - Continue home medications (5) Bipolar disorder Comment: - Supportive care (6) Depression Code(s): F32.9 - MAJOR DEPRESSIVE DISORDER, SINGLE EPISODE, UNSPECIFIED SNOMED Code(s): 07875234 Comment: - Supportive care (7) PTSD (post-traumatic stress disorder) Code(s): F43.10 - POST-TRAUMATIC STRESS DISORDER, UNSPECIFIED SNOMED Code(s): 05375182 Comment: - Supportive care (8) DVT prophylaxis Code(s): IFG8765 - SNOMED Code(s): 505163507 Comment: - SCDs (9) Full code status Code(s): Z78.9 - OTHER SPECIFIED HEALTH STATUS SNOMED Code(s): 356208593 Status and Disposition: Inpatient for iv abx, pending path report. Discharge to home when medically stable.
[2017-09-17] MEDS: MOISTURIZING TOPICAL SCH ×3 (10:09→20:25)
[2017-09-17] MEDS: Cefepime 2 GM in Dextrose(*) 2 GM/50 ML BAG IV SCH (11:54)
[2017-09-17] MEDS: Clindamycin 600 MG IVPREMIX(* 600 MG/50 ML SDV IV SCH ×2 (14:21→20:29)
--- NOTE | 2017-09-17 16:37 | CONS ---
CONSULTATION REPORT: DATE OF CONSULT: 09/17/17. REQUESTING PHYSICIAN: Shawn Cali NP CONSULTING SERVICE: Infectious Disease. REASON FOR CONSULTATION: Right leg cellulitis in the setting of ezcema. IMPRESSION: 1. Right leg erythema, warmth, edema. No knee or ankle tenderness or decrease range of motion. 2. 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 3. Spongiotic dermatitis on biopsy, most likely eczema, severe. 4. Severe anxiety. 5. Bipolar disorder. RECOMMENDATIONS: 1. Change vancomycin and cefepime to clindamycin 600 mg every 8 hours for the right leg cellulitis. 2. Corticosteroids per the hospitalist service. Consider topical steroidsi.e. clobetasol for the most severe areas. 3. Dermatology followup if possible. 4. There is an association with malignancy in this condition so she will need age-appropriate cancer screening. HISTORY OF PRESENT ILLNESS: This is a 42-year-old woman with a year and half of most body involvement with eczema, [facility], more recently developed severe right leg pain and swelling, so she came to the hospital on the 09/15/16, showed a white count of 16,000. CRP of 80. Because of the right leg swelling she had blood cultures taken. She had lactic acidosis. She had started on vancomycin and cefepime. The swelling felt bit better today she has full body itching and pain with redness. She is now using topical Eucerin and corticosteroid, it is little bit better today. This came on about a year and half ago, she has [facility] with some improvement with steroids over time, x3 lapse. She has not taken long hot showers. Does not use a moisturizing cream. She has severe stress which she does thinks it seems to make it worse. PAST MEDICAL HISTORY: 1. Anxiety. 2. Depression. 3. Bipolar disorder. 4. Posttraumatic stress disorder. MEDICATIONS: 1. Vancomycin. 2. Cefepime 1 g every 12 hours. 3. Clonazepam. 4. Tylenol. 5. Lorazepam. 6. Methylprednisolone 40 mg IV every 8hours. 7. Moisturizing cream. 8. Nicotine inhaler. 9. Tramadol. ALLERGIES: SEROQUEL, CODEINE AND GABAPENTIN. FAMILY HISTORY: Mother with mental health disorders. SOCIAL HISTORY: She lives at [facility]. No travel or sick contacts. REVIEW OF SYSTEMS: All negative to a 14-point review of systems except as noted above. PHYSICAL EXAM: Vital Signs: Temperature is 37, heart rate 88, respiratory rate 18, blood pressure 115/49, oxygen saturation 95% on room air. In general, she is awake, not in distress. Neurologic: She is oriented x3, follows all commands. HEENT: There is no conjunctival hemorrhage. Oropharynx without lesions. Neck: Neck is supple. Lymph nodes: There is no inguinal, axillary, or epitrochlear lymphadenopathy. Heart: Regular rate and rhythm without murmurs, rubs or gallops. Lungs: Clear to auscultation bilaterally . Abdomen: Soft, nontender, nondistended. Bowel sounds present. Skin: There is diffuse erythroderma affecting all parts of her body with blanching. There are areas of excoriation. The right leg is in additional diffusely edematous, warm with more intense erythema. There is no crepitus or fluctuance. Musculoskeletal: There is no spine tenderness to palpation. LABORATORY DATA: Creatinine 0.6, CRP was 80. White blood cell count 10, hemoglobin 11, platelets 126. Please see impressions and recommendations outlined above which I discussed with Evelyn Dodson NP. Thanks for asking me to see Ms. Corona in consultation. [id number]/[facility] #: [id number] ELIANA
[2017-09-17] MEDS: Clobetasol 0.05% OINT* 30 GM TUBE TOPICAL SCH ×2 (16:39→20:25)
[2017-09-18] MEDS: Clindamycin 600 MG IVPREMIX(* 600 MG/50 ML SDV IV SCH ×3 (03:23→19:37)
[2017-09-18] MEDS: Morphine INJ* 10 MG/ML 1 ML CARPUJECT IV PRN ×2 (03:50→10:33)
[2017-09-18] MEDS: diPHENhydraMINE PO* 50 MG PO PRN ×3 (03:51→19:48)
[2017-09-18] MEDS: LORazepam TAB(*) 0.5 MG PO PRN ×3 (03:51→16:42)
[2017-09-18] MEDS: methylPREDNISolone SOD 40 MG* 1 ML VIAL IV SCH ×3 (05:47→22:08)
[2017-09-18] MEDS: traMADol TAB* 50 MG PO PRN ×3 (07:43→22:08)
[2017-09-18] MEDS: clonazePAM TAB(*) 1 MG PO SCH ×2 (07:44→22:08)
[2017-09-18 08:16] LABS: ABS Basophils 0 10^3/ul (0-0.2); ABS Eosinophils 0 10^3/ul (0-0.6); ABS Lymphocytes 2.3 10^3/ul (1.0-4.8); ABS Monocytes 1.2 10^3/ul (0-0.8); ABS Neutrophils 18.5 10^3/ul (1.5-7.7); ABS Nucleated RBC 0 10^3/ul; Eosinophil % 0 % (0-6); Hematocrit 30 % (35-47); Hemoglobin 10.2 g/dl (12.0-16.0); Lymphocyte % 10.3 % (25-47); Mean Corpuscular HGB Conc 34 g/dl (31-36); Mean Corpuscular Hemoglobin 33 pg (27-31); Mean Corpuscular Volume 98 fL (80-97); Mean Platelet Volume 8 um3 (7.4-10.4); Nucleated Red Blood Cells % 0.1; Platelet Count 280 10^3/ul (150-450); Red Blood Count 3.09 10^6/ul (4.0-5.4); Red Cell Distribution Width 16 % (10.5-15); White Blood Count 21.9 10^3/ul (3.5-10.8)
[2017-09-18] MEDS: Clobetasol 0.05% OINT* 30 GM TUBE TOPICAL SCH ×2 (09:08→19:42)
[2017-09-18] MEDS: MOISTURIZING TOPICAL SCH ×3 (09:09→19:42)
[2017-09-18] MEDS: Nicotine Inhaler* 10 MG AMP INH PRN (10:25)
--- NOTE | 2017-09-18 11:14 | PN ---
Subjective Date of Service: 09/18/17 Interval History: Patient seen and examined at bedside. Denies fever, shortness of breath, chest discomfort, N/V/D. Pt reports chills, generalized pain from her rash and constipation. Pt also reports itching and has been scratching at numerous areas of her skin. Pt is requesting that her pain medication be increased. She also has concerns about her living situation. She reports that her rash gets worse with stress and [facility] that [facility] that her [facility] will worsen again. Social work will come see Pt again today. Pt is expected to have health insurance starting tomorrow. Family History: Unchanged from Admission Social History: Unchanged from Admission Past Medical History: Unchanged from Admission Objective Active Medications: Acetaminophen (Tylenol Tab*) 650 mg PO Q4H PRN Reason: FEVER/PAIN Clobetasol Propionate (Clobetasol 0.05% Oint*) 1 applic TOPICAL BID YANIV Clonazepam (Klonopin Tab(*)) 2 mg PO BID YANIV Diphenhydramine HCl (Benadryl Po*) 50 mg PO Q6H PRN Reason: ITCHING Clindamycin HCl/Dextrose (Cleocin 600 Mg Ivpremix(*) Sdv) 600 mg in 50 mls @ 100 mls/hr IV Q8H YANIV Lorazepam (Ativan Tab(*)) 0.5 mg PO Q6H PRN Reason: ANXIETY Methylprednisolone Sodium Succinate (Solu-Medrol 40 Mg) 40 mg IV Q8HR YANIV Morphine Sulfate (Morphine Inj (Syringe)*) 5 mg IV Q6H PRN Reason: PAIN Multi-Ingredient Ointment (Hydrocerin Cream*) 1 applic TOPICAL TID YANIV Nicotine (Nicotine Inhaler*) 10 mg INH Q2H PRN Reason: CRAVING Tramadol HCl (Ultram*) 50 mg PO Q8H PRN Reason: PAIN Vital Signs - 8 hr 09/18/17 09/18/17 09/18/17 03:50 03:51 05:40 Temperature Pulse Rate Respiratory 20 20 18 Rate Blood Pressure (mmHg) O2 Sat by Pulse Oximetry 09/18/17 09/18/17 09/18/17 05:56 07:43 07:44 Temperature Pulse Rate Respiratory 18 12 12 Rate Blood Pressure (mmHg) O2 Sat by Pulse Oximetry 09/18/17 09/18/17 09/18/17 08:00 08:07 10:27 Temperature 97.7 F Pulse Rate 69 Respiratory 12 20 12 Rate Blood Pressure 123/75 (mmHg) O2 Sat by Pulse 99 Oximetry Oxygen Devices in Use Now: None Appearance: NAD, sitting up in bed Ears/Nose/Mouth/Throat: Mucous Membranes Moist Respiratory: Symmetrical Chest Expansion and Respiratory Effort, Clear to Auscultation Cardiovascular: NL Sounds; No Murmurs; No JVD, RRR Abdominal: NL Sounds; No Tenderness; No Distention Extremities: - - Mild edema to bilateral LE Skin: - - Pt with generalized rash with erythema, sparing the palms and soles of feet. Erythema is improving today. Pt has numerous areas that she has scratched open. Neurological: Alert and Oriented x 3, NL Muscle Strength and Tone Lines/Tubes/Other Access: Clean, Dry and Intact Peripheral IV - site benign Nutrition: Taking PO's Result Diagrams: 09/18/17 07:36 09/17/17 08:25 Additional Lab and Data: Microbiology and Other Data: Microbiology 09/15/17 22:45 Nasal Screen MRSA (PCR)(MADYSON) - Final Nasal Mrsa Negative Assess/Plan/Problems-Billing Assessment: Ms. Corona is a 42 y/o female patient who presented to the emergency room with complaints of a diffuse rash and puritis with a ? overlying infection. - Patient Problems (1) Cellulitis Code(s): L03.90 - CELLULITIS, UNSPECIFIED SNOMED Code(s): 380852444 Comment: - ID consult, input appreciated - Continue IV clindamycin (2) Atopic dermatitis Code(s): L20.9 - ATOPIC DERMATITIS, UNSPECIFIED SNOMED Code(s): 53144172 Comment: - S/P punch biopsy - Pathology results - Eosinophilic spongiotic dermatitis - Suspect this is eczema - Continue lotion, iv steriods, and supportive care (3) Leukocytosis Code(s): D72.829 - ELEVATED WHITE BLOOD CELL COUNT, UNSPECIFIED SNOMED Code(s) : 340391946 Comment: - Suspect this is secondary to IV steroids - Skin infection appears to be improving (4) Constipation Code(s): K59.00 - CONSTIPATION, UNSPECIFIED SNOMED Code(s): 53859397 Comment: - No BM for 4 days - Will start PRN bowel medications (5) Thrombocytopenia Code(s): D69.6 - THROMBOCYTOPENIA, UNSPECIFIED SNOMED Code(s): 628781705 Comment: - Resolved on this AMs labs (6) Anxiety Code(s): F41.9 - ANXIETY DISORDER, UNSPECIFIED SNOMED Code(s): 83462972 Comment: - Continue home medications (7) Bipolar disorder Comment: - Supportive care (8) Depression Code(s): F32.9 - MAJOR DEPRESSIVE DISORDER, SINGLE EPISODE, UNSPECIFIED SNOMED Code(s): 71767691 Comment: - Supportive care (9) PTSD (post-traumatic stress disorder) Code(s): F43.10 - POST-TRAUMATIC STRESS DISORDER, UNSPECIFIED SNOMED Code(s): 45806190 Comment: - Supportive care (10) DVT prophylaxis Code(s): RLJ7544 - SNOMED Code(s): 411325647 Comment: - SCDs (11) Full code status Code(s): Z78.9 - OTHER SPECIFIED HEALTH STATUS SNOMED Code(s): 888665494 Status and Disposition: Inpatient. Discharge to home when medically stable. Tentative discharge in the AM.
[2017-09-18] MEDS ORDERED: Polyethylene Glycol 3350* 17 GM PACKET PO PRN (11:37)
[2017-09-18] MEDS ORDERED: Magnesium Hydroxide LIQ* 30 ML UDC PO PRN (11:37)
[2017-09-18] MEDS ORDERED: Morphine INJ* 10 MG/ML 1 ML CARPUJECT IV PRN (11:41)
[2017-09-19] MEDS: traMADol TAB* 50 MG PO PRN ×5 (03:52→20:44)
[2017-09-19] MEDS: diPHENhydraMINE PO* 50 MG PO PRN ×2 (03:52→20:43)
[2017-09-19] MEDS: LORazepam TAB(*) 0.5 MG PO PRN ×3 (03:52→17:22)
[2017-09-19] MEDS: Clindamycin 600 MG IVPREMIX(* 600 MG/50 ML SDV IV SCH ×3 (03:52→19:55)
--- NOTE | 2017-09-19 04:22 | PN ---
Progress Note - Progress Note Date of Service: 09/19/17 Note: Patient noted to be hypoxic. Denies SOB. remaining vitals stable. Does not appear to be overly sedated. Will obtain a CXR. Maintaining sats >90% on 4L
[2017-09-19] MEDS: methylPREDNISolone SOD 40 MG* 1 ML VIAL IV SCH ×3 (05:18→20:35)
[2017-09-19] MEDS: clonazePAM TAB(*) 1 MG PO SCH ×2 (07:31→19:55)
[2017-09-19] MEDS: Clobetasol 0.05% OINT* 30 GM TUBE TOPICAL SCH ×2 (07:32→19:56)
[2017-09-19] MEDS: MOISTURIZING TOPICAL SCH ×3 (07:33→20:13)
[2017-09-19 08:10] LABS: Hematocrit 30 % (35-47); Mean Corpuscular HGB Conc 33 g/dl (31-36); Mean Corpuscular Hemoglobin 33 pg (27-31); Mean Corpuscular Volume 98 fL (80-97); Mean Platelet Volume 7 um3 (7.4-10.4); Platelet Count 284 10^3/ul (150-450); Red Blood Count 3.08 10^6/ul (4.0-5.4); Red Cell Distribution Width 16 % (10.5-15); White Blood Count 22.3 10^3/ul (3.5-10.8)
[2017-09-19 08:23] LABS: EGFR Non-African American 106.6 (>60)
--- NOTE | 2017-09-19 08:38 | RAD ---
Indication: Hypoxia. Single frontal view of the chest performed at 0444 hours was reviewed. No prior study is available for comparison. No mediastinal shift is noted. Heart is of normal size and configuration. Interstitial edema consistent with vascular congestion is noted.. IMPRESSION: VASCULAR CONGESTION.
[2017-09-19 08:50] LABS: ABS Basophils 0 10^3/ul (0-0.2); ABS Eosinophils 0 10^3/ul (0-0.6); ABS Lymphocytes 1.9 10^3/ul (1.0-4.8); ABS Monocytes 1.4 10^3/ul (0-0.8); ABS Nucleated RBC 0 10^3/ul; Eosinophil % 0.1 % (0-6); Lymphocyte % 8.5 % (25-47); Nucleated Red Blood Cells % 0.1
[2017-09-19] MEDS: Topiramate TAB(*) 25 MG PO SCH ×2 (12:03→19:56)
[2017-09-19] MEDS: busPIRone TAB* 5 MG PO SCH ×2 (12:03→19:56)
--- NOTE | 2017-09-19 17:26 | PN ---
Subjective Date of Service: 09/19/17 Interval History: Patient was found to be hypoxic to the 70s over night and was started on O2. Patient was able to be weaned down to RA today twice but needed to be put back on oxygen each time, but to 5L by NC. There is no correlation with the amount of depressant medication the patient has been receiving and seems to get worse with anxiety, particularly about discharge, but occurs when patient is calm and breathing normally. Patient denies CP, SOB, palpitations, F/C, N/V, abdominal pain, diarrhea, constipation, dysuria. Patient complains of pain in her right leg that is stable from yesterday. Family History: Unchanged from Admission Social History: Unchanged from Admission Past Medical History: Unchanged from Admission Objective Active Medications: Acetaminophen (Tylenol Tab*) 650 mg PO Q4H PRN PRN Reason: FEVER/PAIN Buspirone HCl (Buspar Tab*) 5 mg PO BID [facility] Last Admin: 09/19/17 12:03 Dose: 5 mg Clobetasol Propionate (Clobetasol 0.05% Oint*) 1 applic TOPICAL BID [facility] Last Admin: 09/19/17 07:32 Dose: 1 applic Clonazepam (Klonopin Tab(*)) 2 mg PO BID [facility] Last Admin: 09/19/17 07:31 Dose: 2 mg Diphenhydramine HCl (Benadryl Po*) 50 mg PO Q6H PRN PRN Reason: ITCHING Last Admin: 09/18/17 19:48 Dose: 50 mg Clindamycin HCl/Dextrose (Cleocin 600 Mg Ivpremix(*) Sdv) 600 mg in 50 mls @ 100 mls/hr IV Q8H [facility] Last Admin: 09/19/17 12:02 Dose: 100 mls/hr Lorazepam (Ativan Tab(*)) 0.5 mg PO Q6H PRN PRN Reason: ANXIETY Last Admin: 09/19/17 07:32 Dose: 0.5 mg Magnesium Hydroxide (Milk Of Magnesia Liq*) 30 ml PO Q6H PRN PRN Reason: CONSTIPATION Methylprednisolone Sodium Succinate (Solu-Medrol 40 Mg) 40 mg IV Q8HR [facility] Last Admin: 09/19/17 13:43 Dose: 40 mg Multi-Ingredient Ointment (Hydrocerin Cream*) 1 applic TOPICAL TID [facility] Last Admin: 09/19/17 13:43 Dose: 1 applic Nicotine (Nicotine Inhaler*) 10 mg INH Q2H PRN PRN Reason: CRAVING Last Admin: 09/18/17 10:25 Dose: 10 mg Polyethylene Glycol/Electrolytes (Miralax*) 17 gm PO DAILY PRN PRN Reason: CONSTIPATION Last Admin: 09/18/17 16:44 Dose: 17 gm Topiramate (Topamax(*)) 50 mg PO BID [facility] Last Admin: 09/19/17 12:03 Dose: 50 mg Tramadol HCl (Ultram*) 50 mg PO Q4H PRN PRN Reason: PAIN Last Admin: 09/19/17 12:03 Dose: 50 mg Vital Signs - 8 hr 09/19/17 09/19/17 09/19/17 10:52 12:03 12:23 Temperature 98.3 F Pulse Rate 48 Respiratory 17 17 18 Rate Blood Pressure 154/81 (mmHg) O2 Sat by Pulse 95 Oximetry 09/19/17 09/19/17 09/19/17 13:00 14:00 14:35 Temperature Pulse Rate 68 Respiratory 16 17 Rate Blood Pressure (mmHg) O2 Sat by Pulse 95 90 Oximetry 09/19/17 17:03 Temperature 98.8 F Pulse Rate 50 Respiratory 20 Rate Blood Pressure 148/79 (mmHg) O2 Sat by Pulse 93 Oximetry Oxygen Devices in Use Now: Nasal Cannula - 3L Appearance: Patient is a 42yo female who appears stated age and is sitting in the bed in [facility]. Eyes: No Scleral Icterus, PERRLA Ears/Nose/Mouth/Throat: NL Teeth, Lips, Gums, Clear Oropharnyx, Mucous Membranes Moist Neck: NL Appearance and Movements; NL JVP, Trachea Midline Respiratory: Symmetrical Chest Expansion and Respiratory Effort, Clear to Auscultation Cardiovascular: NL Sounds; No Murmurs; No JVD, RRR, No Edema Abdominal: NL Sounds; No Tenderness; No Distention, No Hepatosplenomegaly Lymphatic: No Cervical Adenopathy Extremities: No Edema, No Clubbing, Cyanosis Skin: No Nodules or Sclerosis, - - Widespread maculopapular rash with excoriations over entire body. Worst on right rodgers with open area with scab, erythema and swelling. Neurological: Alert and Oriented x 3, NL Sensation, NL Muscle Strength and Tone , - - CN II-XII intact Result Diagrams: 09/19/17 07:44 09/19/17 07:44 Additional Lab and Data: Microbiology and Other Data: Microbiology 09/15/17 22:45 Nasal Screen MRSA (PCR)(MADYSON) - Final Nasal Mrsa Negative Assess/Plan/Problems-Billing Assessment: Ms. Corona is a 42 y/o female patient who presented to the emergency room with complaints of a diffuse rash and puritis with a ? overlying infection. - Patient Problems (1) Cellulitis Current Visit: Yes Status: Acute Priority: High Code(s): L03.90 - CELLULITIS, UNSPECIFIED SNOMED Code(s): 527129531 Comment: ID consult, input appreciated Continue IV clindamycin, change to PO when discharged. (2) Atopic dermatitis Current Visit: Yes Status: Acute Priority: High Code(s): L20.9 - ATOPIC DERMATITIS, UNSPECIFIED SNOMED Code(s): 60556904 Comment: S/P punch biopsy Pathology results - Eosinophilic spongiotic dermatitis Suspect this is eczema Continue lotion, iv steriods, and supportive care Appreciate ID consult. Possible correlation with occult malignancy. Patient is UTD on screening including mammogram and has no other signs of malignancy including weight loss, easy brusing, fatigue. CXR negative. (3) Hypoxia Current Visit: Yes Status: Acute Code(s): R09.02 - HYPOXEMIA SNOMED Code(s ): 663028245 Comment: Of unknown cause, CXR negative. Repeated desats, worse with activity. CTA chest to R/O PE and assess lung parenchyma. (4) Anxiety Current Visit: Yes Status: Acute Priority: High Code(s): F41.9 - ANXIETY DISORDER, UNSPECIFIED SNOMED Code(s): 14975911 Comment: Continue Klonipin. Explained to patient that benzodiazepines are not for the correction treatment of anxiety. Patient has had previous poor reactions to SSRIs and SNRIs due to increased cycling with BPI. Will start on Buspar. (5) Bipolar disorder Current Visit: Yes Status: Acute Priority: High Comment: Resume Topamax which patient is prescribed outpatient. (6) Constipation Current Visit: Yes Status: Acute Code(s): K59.00 - CONSTIPATION, UNSPECIFIED SNOMED Code(s): 60177562 Comment: No BM for 5 days Continue PRN bowel medications Patient has no subjective constipation. (7) Depression Current Visit: Yes Status: Acute Priority: High Code(s): F32.9 - MAJOR DEPRESSIVE DISORDER, SINGLE EPISODE, UNSPECIFIED SNOMED Code(s): 55671213 Comment: Supportive care, had previous bad reaction to SSRI and SNRI. (8) Leukocytosis Current Visit: Yes Status: Acute Code(s): D72.829 - ELEVATED WHITE BLOOD CELL COUNT, UNSPECIFIED SNOMED Code(s): 439128592 Comment: Suspect this is secondary to IV steroids Skin infection appears to be improving (9) PTSD (post-traumatic stress disorder) Current Visit: Yes Status: Acute Priority: High Code(s): F43.10 - POST- TRAUMATIC STRESS DISORDER, UNSPECIFIED SNOMED Code(s): 10112257 Comment: Supportive care (10) DVT prophylaxis Current Visit: Yes Status: Acute Priority: High Code(s): [id number] - SNOMED Code(s): 171633511 Comment: SCDs and Heparin SubQ (11) Full code status Current Visit: Yes Status: Acute Code(s): Z78.9 - OTHER SPECIFIED HEALTH STATUS SNOMED Code(s): 000888232 Status and Disposition: Inpatient. Discharge to home when medically stable.
[2017-09-19] MEDS ORDERED: Iohexol 350* (CONTRAST) 500 ML MDV IV ONE (17:36)
--- NOTE | 2017-09-19 18:43 | RAD ---
INDICATION: Chest pain. . Vascular congestion Short of breath. Evaluate for pulmonary embolus. COMPARISON: Chest x-ray September 19, 2017 TECHNIQUE: Axial source images were obtained from the thoracic inlet to the hemidiaphragms following administration of 60.[address] angiographic technique was utilized. Coronal and sagittal reconstructed images were acquired. CHEST FINDINGS: Neck/thyroid: The visualized neck to include the thyroid appear normal. Chest wall: There are no acute abnormalities of the bony thorax or chest wall. There is no supraclavicular, infraclavicular, or axillary lymphadenopathy. There are multiple small axillary lymph nodes. Lungs : There is patchy bilateral interstitial and alveolar change which may represent interstitial and alveolar edema although, in the appropriate clinical setting, infectious pneumonitis would have this appearance. There are no endobronchial lesions. Cardiomediastinal structures: There is no CT evidence of acute pulmonary embolic disease. The heart is normal in size. There is no pericardial effusion. There is no evidence of aortic aneurysm or dissection. There is no mediastinal or hilar adenopathy. The esophagus appears normal. Pleura : Moderate size bilateral pleural effusions. Other: There is subcutaneous edema. There is edema in the gallbladder fossa. There is mild mesenteric edema. IMPRESSION: NO CT EVIDENCE OF ACUTE PULMONARY EMBOLIC DISEASE. INTERSTITIAL AND ALVEOLAR INFILTRATIVE CHANGE WITH MODERATE SIZE BILATERAL PLEURAL EFFUSIONS SUGGEST VASCULAR CONGESTION ALTHOUGH INFECTIOUS PNEUMONITIS MIGHT ALSO HAVE THIS APPEARANCE
[2017-09-19] MEDS ORDERED: Furosemide IV* 10 MG/ML 2 ML VIAL (20 MG) IV SLOW PU ONE (20:14)
[2017-09-19] MEDS: Heparin VIAL(*) 5000 UNITS/ML VIAL (FIVE THOUSAND) SUBCUT SCH (20:35)
--- NOTE | 2017-09-19 21:18 | PN ---
Hospitalist Progress Note Date of Service: 09/19/17 Patient continues to be hypoxic and requires supplemental oxygen. Chest CTA from today shows no signs of PE, but interstitial and alveolar infiltrative change and moderate size bilateral pleural effusions suggest vascular congestion. Chest xray from today also showed vascular congestion. Pt appears to be positive on her fluid balance. Will give a dose of IV lasix tonight. Should consider getting an echo on her.
[2017-09-20] MEDS: traMADol TAB* 50 MG PO PRN ×5 (00:33→22:51)
[2017-09-20] MEDS: LORazepam TAB(*) 0.5 MG PO PRN ×4 (00:34→22:52)
[2017-09-20] MEDS: Clindamycin 600 MG IVPREMIX(* 600 MG/50 ML SDV IV SCH ×3 (03:53→20:35)
[2017-09-20] MEDS: methylPREDNISolone SOD 40 MG* 1 ML VIAL IV SCH (04:55)
[2017-09-20] MEDS: Heparin VIAL(*) 5000 UNITS/ML VIAL (FIVE THOUSAND) SUBCUT SCH ×3 (04:55→20:36)
[2017-09-20 08:05] LABS: Hematocrit 33 % (35-47); Mean Corpuscular HGB Conc 33 g/dl (31-36); Mean Corpuscular Hemoglobin 32 pg (27-31); Mean Corpuscular Volume 98 fL (80-97); Mean Platelet Volume 8 um3 (7.4-10.4); Platelet Count 310 10^3/ul (150-450); Red Cell Distribution Width 16 % (10.5-15); White Blood Count 20.5 10^3/ul (3.5-10.8)
[2017-09-20 08:21] LABS: EGFR Non-African American 89.7 (>60)
[2017-09-20 08:33] LABS: Monocytes % 6 % (0-13)
[2017-09-20] MEDS: Topiramate TAB(*) 25 MG PO SCH ×2 (08:58→20:37)
[2017-09-20] MEDS: clonazePAM TAB(*) 1 MG PO SCH ×2 (08:58→20:36)
[2017-09-20] MEDS: Clobetasol 0.05% OINT* 30 GM TUBE TOPICAL SCH ×2 (08:59→20:55)
[2017-09-20] MEDS: busPIRone TAB* 5 MG PO SCH ×2 (08:59→20:37)
[2017-09-20] MEDS: MOISTURIZING TOPICAL SCH ×3 (09:00→20:55)
[2017-09-20] MEDS: Nicotine Inhaler* 10 MG AMP INH PRN (13:27)
[2017-09-20] MEDS: predniSONE TAB* 20 MG PO SCH (13:37)
[2017-09-20] MEDS ORDERED: Furosemide IV* 10 MG/ML 2 ML VIAL (20 MG) IV SLOW PU ONE (16:02)
--- NOTE | 2017-09-20 16:29 | PN ---
Subjective Date of Service: 09/20/17 Interval History: Patient has continued anxiety with regards to her clinical condition and pain from her leg. Patient denies SOB but remains hypoxic and unable to be weaned off O2. Patient denies any history of leg swelling, SOB with exertion, or any heart disease. Patient denies F/C, N/V, abdominal pain, diarrhea, constipation, Dizziness, CP, Dysuria, back pain, or other pain. Family History: Unchanged from Admission Social History: Unchanged from Admission Past Medical History: Unchanged from Admission Objective Active Medications: Acetaminophen (Tylenol Tab*) 650 mg PO Q4H PRN PRN Reason: FEVER/PAIN Buspirone HCl (Buspar Tab*) 5 mg PO BID [facility] Last Admin: 09/20/17 08:59 Dose: 5 mg Clobetasol Propionate (Clobetasol 0.05% Oint*) 1 applic TOPICAL BID [facility] Last Admin: 09/20/17 08:59 Dose: 1 applic Clonazepam (Klonopin Tab(*)) 2 mg PO BID [facility] Last Admin: 09/20/17 08:58 Dose: 2 mg Diphenhydramine HCl (Benadryl Po*) 50 mg PO Q6H PRN PRN Reason: ITCHING Last Admin: 09/19/17 20:43 Dose: 50 mg Heparin Sodium (Porcine) (Heparin Vial(*)) 5,000 units SUBCUT Q8HR [facility] Last Admin: 09/20/17 13:29 Dose: 5,000 units Clindamycin HCl/Dextrose (Cleocin 600 Mg Ivpremix(*) Sdv) 600 mg in 50 mls @ 100 mls/hr IV Q8H [facility] Last Admin: 09/20/17 12:43 Dose: 100 mls/hr Lorazepam (Ativan Tab(*)) 0.5 mg PO Q6H PRN PRN Reason: ANXIETY Last Admin: 09/20/17 15:48 Dose: 0.5 mg Magnesium Hydroxide (Milk Of Magnesia Liq*) 30 ml PO Q6H PRN PRN Reason: CONSTIPATION Multi-Ingredient Ointment (Hydrocerin Cream*) 1 applic TOPICAL TID [facility] Last Admin: 09/20/17 13:33 Dose: 1 applic Nicotine (Nicotine Inhaler*) 10 mg INH Q2H PRN PRN Reason: CRAVING Last Admin: 09/20/17 13:27 Dose: 10 mg Polyethylene Glycol/Electrolytes (Miralax*) 17 gm PO DAILY PRN PRN Reason: CONSTIPATION Last Admin: 09/18/17 16:44 Dose: 17 gm Prednisone (Deltasone Tab*) 60 mg PO DAILY [facility] Last Admin: 09/20/17 13:37 Dose: 60 mg Topiramate (Topamax(*)) 50 mg PO BID [facility] Last Admin: 09/20/17 08:58 Dose: 50 mg Tramadol HCl (Ultram*) 50 mg PO Q4H PRN PRN Reason: PAIN Last Admin: 09/20/17 13:28 Dose: 50 mg Vital Signs - 8 hr 09/20/17 09/20/17 09/20/17 08:40 08:57 08:58 Temperature 97.9 F Pulse Rate 51 Respiratory 18 16 16 Rate Blood Pressure 137/65 (mmHg) O2 Sat by Pulse 98 Oximetry 09/20/17 09/20/17 09/20/17 09:10 10:35 10:40 Temperature Pulse Rate Respiratory 16 16 16 Rate Blood Pressure (mmHg) O2 Sat by Pulse Oximetry 09/20/17 09/20/17 09/20/17 12:20 12:30 12:52 Temperature 97.3 F Pulse Rate 44 51 Respiratory 18 16 Rate Blood Pressure 120/68 (mmHg) O2 Sat by Pulse 98 Oximetry 09/20/17 09/20/17 09/20/17 13:28 15:05 15:48 Temperature Pulse Rate Respiratory 16 16 16 Rate Blood Pressure (mmHg) O2 Sat by Pulse Oximetry Oxygen Devices in Use Now: Nasal Cannula - 2L Appearance: Patient is a 42yo female who appears stated age and is sitting in the bed in [facility]. Eyes: No Scleral Icterus, PERRLA Ears/Nose/Mouth/Throat: NL Teeth, Lips, Gums, Clear Oropharnyx, Mucous Membranes Moist Neck: NL Appearance and Movements; NL JVP, Trachea Midline Respiratory: Symmetrical Chest Expansion and Respiratory Effort, Clear to Auscultation Cardiovascular: NL Sounds; No Murmurs; No JVD, RRR, No Edema Abdominal: NL Sounds; No Tenderness; No Distention, No Hepatosplenomegaly Lymphatic: No Cervical Adenopathy Extremities: No Edema, No Clubbing, Cyanosis Skin: - - Widespread maculopapular rash with excoriations consistent with scratching and a large scabbed open area on right rodgers with improvement in erythema from previous exam. Neurological: Alert and Oriented x 3, NL Sensation, NL Muscle Strength and Tone , - - CN II-XII intact. Result Diagrams: 09/20/17 07:49 09/20/17 07:49 Additional Lab and Data: Microbiology and Other Data: Microbiology 09/15/17 22:45 Nasal Screen MRSA (PCR)([facility]YS[facility]) - Final Nasal Mrsa Negative Assess/Plan/Problems-Billing Assessment: Ms. Corona is a 42 y/o female patient who presented to the emergency room with complaints of a diffuse rash and puritis with an overlying cellulitis. - Patient Problems (1) Cellulitis Current Visit: Yes Status: Acute Priority: High Code(s): L03.90 - CELLULITIS, UNSPECIFIED SNOMED Code(s): 835104620 Comment: ID consult, input appreciated Continue IV clindamycin, change to PO when discharged. (2) Atopic dermatitis Current Visit: Yes Status: Acute Priority: High Code(s): L20.9 - ATOPIC DERMATITIS, UNSPECIFIED SNOMED Code(s): 35350369 Comment: S/P punch biopsy Pathology results - Eosinophilic spongiotic dermatitis Suspect this is eczema Continue lotion, iv steriods, and supportive care Appreciate ID consult. Possible correlation with occult malignancy. Patient is UTD on screening including mammogram and has no other signs of malignancy including weight loss, easy brusing, fatigue. CXR and CTA of chest negative. (3) Hypoxia Current Visit: Yes Status: Acute Code(s): R09.02 - HYPOXEMIA SNOMED Code(s ): 475998874 Comment: Of unknown cause, CXR negative. Repeated desats, worse with activity. CTA negative for PE. Signficant pulmonary edema with B/L Pleural effusions. Lasix ordered 40mg IV total. Improvement in pulmonary status but still on O2. Echo pending. (4) Anxiety Current Visit: Yes Status: Acute Priority: High Code(s): F41.9 - ANXIETY DISORDER, UNSPECIFIED SNOMED Code(s): 46154648 Comment: Continue Klonipin. Explained to patient that benzodiazepines are not for the residential treatment of anxiety. Patient has had previous poor reactions to SSRIs and SNRIs due to increased cycling with BPI. Will start on Buspar. (5) Bipolar disorder Current Visit: Yes Status: Acute Priority: High Comment: Resume Topamax which patient is prescribed outpatient. (6) Constipation Current Visit: Yes Status: Acute Code(s): K59.00 - CONSTIPATION, UNSPECIFIED SNOMED Code(s): 78046553 Comment: No BM for 5 days Continue PRN bowel medications Patient has no subjective constipation. (7) Depression Current Visit: Yes Status: Acute Priority: High Code(s): F32.9 - MAJOR DEPRESSIVE DISORDER, SINGLE EPISODE, UNSPECIFIED SNOMED Code(s): 90393064 Comment: Supportive care, had previous bad reaction to SSRI and SNRI. (8) Leukocytosis Current Visit: Yes Status: Acute Code(s): D72.829 - ELEVATED WHITE BLOOD CELL COUNT, UNSPECIFIED SNOMED Code(s): 391615940 Comment: Suspect this is secondary to IV steroids Skin infection appears to be improving (9) PTSD (post-traumatic stress disorder) Current Visit: Yes Status: Acute Priority: High Code(s): F43.10 - POST- TRAUMATIC STRESS DISORDER, UNSPECIFIED SNOMED Code(s): 48563958 Comment: Supportive care (10) DVT prophylaxis Current Visit: Yes Status: Acute Priority: High Code(s): EEF1790 - SNOMED Code(s): 059743501 Comment: SCDs and Heparin SubQ (11) Full code status Current Visit: Yes Status: Acute Code(s): Z78.9 - OTHER SPECIFIED HEALTH STATUS SNOMED Code(s): 825280004 Status and Disposition: Inpatient. Discharge to home when medically stable.
[2017-09-20] MEDS: diPHENhydraMINE PO* 50 MG PO PRN (20:36)
[2017-09-21] MEDS: diPHENhydraMINE PO* 50 MG PO PRN ×3 (04:14→18:05)
[2017-09-21] MEDS: Clindamycin 600 MG IVPREMIX(* 600 MG/50 ML SDV IV SCH ×2 (04:14→11:39)
[2017-09-21] MEDS: traMADol TAB* 50 MG PO PRN ×5 (04:14→22:03)
[2017-09-21] MEDS: Heparin VIAL(*) 5000 UNITS/ML VIAL (FIVE THOUSAND) SUBCUT SCH ×3 (04:23→22:05)
[2017-09-21] MEDS: LORazepam TAB(*) 0.5 MG PO PRN ×3 (05:58→18:05)
--- NOTE | 2017-09-21 08:03 | RAD ---
Indication: Follow-up CHF. Single frontal view of the chest performed at 0600 hours was reviewed. Comparison is made with previous exam dated September 19, 2017. No mediastinal shift is noted. Interstitial edema is improved. There is now a small to moderate right pleural effusion noted. IMPRESSION: INTERSTITIAL EDEMA IS IMPROVED WITH SMALL RIGHT PLEURAL EFFUSION.
[2017-09-21 08:59] LABS: Hematocrit 32 % (35-47); Hemoglobin 10.9 g/dl (12.0-16.0); Mean Corpuscular HGB Conc 34 g/dl (31-36); Mean Corpuscular Hemoglobin 32 pg (27-31); Mean Corpuscular Volume 96 fL (80-97); Mean Platelet Volume 7 um3 (7.4-10.4); Platelet Count 337 10^3/ul (150-450); Red Blood Count 3.37 10^6/ul (4.0-5.4); Red Cell Distribution Width 15 % (10.5-15); White Blood Count 16.1 10^3/ul (3.5-10.8)
[2017-09-21] MEDS: busPIRone TAB* 5 MG PO SCH ×2 (09:10→22:04)
[2017-09-21] MEDS: clonazePAM TAB(*) 1 MG PO SCH ×2 (09:10→22:02)
[2017-09-21] MEDS: predniSONE TAB* 20 MG PO SCH (09:10)
[2017-09-21] MEDS: Topiramate TAB(*) 25 MG PO SCH ×2 (09:10→22:02)
[2017-09-21] MEDS: MOISTURIZING TOPICAL SCH ×3 (09:12→22:06)
[2017-09-21] MEDS: Clobetasol 0.05% OINT* 30 GM TUBE TOPICAL SCH ×2 (09:12→22:04)
[2017-09-21 09:15] LABS: EGFR Non-African American 91.2 (>60)
[2017-09-21 09:40] LABS: ABS Basophils 0 10^3/ul (0-0.2); ABS Eosinophils 0.1 10^3/ul (0-0.6); ABS Lymphocytes 2.5 10^3/ul (1.0-4.8); ABS Monocytes 1.6 10^3/ul (0-0.8); ABS Neutrophils 11.8 10^3/ul (1.5-7.7); ABS Nucleated RBC 0 10^3/ul; Eosinophil % 0.4 % (0-6); Lymphocyte % 15.7 % (25-47); Nucleated Red Blood Cells % 0.1
[2017-09-21] MEDS: Nicotine Inhaler* 10 MG AMP INH PRN (12:50)
--- NOTE | 2017-09-21 13:34 | PN ---
Subjective Date of Service: 09/21/17 Interval History: Patient has no new complaints. Patient has significant pain in her leg still, but it is controlled with tramadol and tylenol. Patient is also significantly anxious with PRN use of ativan. Patient had not noticed any difference in her anxiety level with the initiation of the Buspar and Topimirate. Patient denies CP, SOB, N/V, Abdominal pain, diarrhea, F/C, or other pain. Patient has significant anxiety about being discharged. Family History: Unchanged from Admission Social History: Unchanged from Admission Past Medical History: Unchanged from Admission Objective Active Medications: Acetaminophen (Tylenol Tab*) 650 mg PO Q4H PRN PRN Reason: FEVER/PAIN Last Admin: 09/20/17 16:29 Dose: 650 mg Buspirone HCl (Buspar Tab*) 5 mg PO BID [facility] Last Admin: 09/21/17 09:10 Dose: 5 mg Clindamycin HCl (Cleocin Cap*) 300 mg PO Q8HR [facility] Clobetasol Propionate (Clobetasol 0.05% Oint*) 1 applic TOPICAL BID [facility] Last Admin: 09/21/17 09:12 Dose: 1 applic Clonazepam (Klonopin Tab(*)) 2 mg PO BID [facility] Last Admin: 09/21/17 09:10 Dose: 2 mg Diphenhydramine HCl (Benadryl Po*) 50 mg PO Q6H PRN PRN Reason: ITCHING Last Admin: 09/21/17 11:39 Dose: 50 mg Heparin Sodium (Porcine) (Heparin Vial(*)) 5,000 units SUBCUT Q8HR [facility] Last Admin: 09/21/17 13:16 Dose: 5,000 units Lorazepam (Ativan Tab(*)) 0.5 mg PO Q6H PRN PRN Reason: ANXIETY Last Admin: 09/21/17 11:39 Dose: 0.5 mg Magnesium Hydroxide (Milk Of Magnesia Liq*) 30 ml PO Q6H PRN PRN Reason: CONSTIPATION Multi-Ingredient Ointment (Hydrocerin Cream*) 1 applic TOPICAL TID [facility] Last Admin: 09/21/17 13:19 Dose: 1 applic Nicotine (Nicotine Inhaler*) 10 mg INH Q2H PRN PRN Reason: CRAVING Last Admin: 09/21/17 12:50 Dose: 10 mg Polyethylene Glycol/Electrolytes (Miralax*) 17 gm PO DAILY PRN PRN Reason: CONSTIPATION Last Admin: 09/18/17 16:44 Dose: 17 gm Prednisone (Deltasone Tab*) 60 mg PO DAILY [facility] Last Admin: 09/21/17 09:10 Dose: 60 mg Topiramate (Topamax(*)) 50 mg PO BID [facility] Last Admin: 09/21/17 09:10 Dose: 50 mg Tramadol HCl (Ultram*) 50 mg PO Q4H PRN PRN Reason: PAIN Last Admin: 09/21/17 13:16 Dose: 50 mg Vital Signs - 8 hr 09/21/17 09/21/17 09/21/17 05:58 06:05 06:06 Temperature Pulse Rate Respiratory 16 18 18 Rate Blood Pressure (mmHg) O2 Sat by Pulse Oximetry 09/21/17 09/21/17 09/21/17 08:00 08:09 08:15 Temperature 97.8 F Pulse Rate 44 56 Respiratory 16 16 Rate Blood Pressure 138/75 (mmHg) O2 Sat by Pulse 96 96 Oximetry 09/21/17 09/21/17 09/21/17 09:10 10:52 11:39 Temperature Pulse Rate Respiratory 16 16 18 Rate Blood Pressure (mmHg) O2 Sat by Pulse Oximetry 09/21/17 13:16 Temperature Pulse Rate Respiratory 16 Rate Blood Pressure (mmHg) O2 Sat by Pulse Oximetry Oxygen Devices in Use Now: None Appearance: Patient is a 42yo female who appears stated age and is sitting in the bed in [facility]. Eyes: No Scleral Icterus, PERRLA Ears/Nose/Mouth/Throat: NL Teeth, Lips, Gums, Clear Oropharnyx, Mucous Membranes Moist Neck: NL Appearance and Movements; NL JVP, Trachea Midline Respiratory: Symmetrical Chest Expansion and Respiratory Effort, Clear to Auscultation Cardiovascular: RRR, No Edema, - - No JVD, S1, S2 present. Patient has a 1/6 systolic ejection murmur heard best at RUSB which was no appreciated on any previous exams. Abdominal: NL Sounds; No Tenderness; No Distention, No Hepatosplenomegaly Lymphatic: No Cervical Adenopathy Extremities: No Edema, No Clubbing, Cyanosis Skin: No Nodules or Sclerosis, - - Widespread and improving rash with healing excoriations. Neurological: Alert and Oriented x 3, NL Sensation, NL Muscle Strength and Tone , - - CN II-XII intact. Result Diagrams: 09/21/17 08:43 09/21/17 08:43 Additional Lab and Data: Microbiology and Other Data: Microbiology 09/15/17 22:45 Nasal Screen MRSA (PCR)([facility]) - Final Nasal Mrsa Negative Assess/Plan/Problems-Billing Assessment: Ms. Corona is a 42 y/o female patient who presented to the emergency room with complaints of a diffuse rash and puritis with an overlying cellulitis. - Patient Problems (1) Cellulitis Current Visit: Yes Status: Acute Priority: High Code(s): L03.90 - CELLULITIS, UNSPECIFIED SNOMED Code(s): 838979943 Comment: ID consult, input appreciated Changed to PO Clindamycin. (2) Atopic dermatitis Current Visit: Yes Status: Acute Priority: High Code(s): L20.9 - ATOPIC DERMATITIS, UNSPECIFIED SNOMED Code(s): 54197432 Comment: S/P punch biopsy Pathology results - Eosinophilic spongiotic dermatitis Suspect this is eczema Continue lotion, steriods, and supportive care Appreciate ID consult. Possible correlation with occult malignancy. Patient is UTD on screening including mammogram and has no other signs of malignancy including weight loss, easy brusing, fatigue. CXR and CTA of chest negative. (3) Hypoxia Current Visit: Yes Status: Acute Code(s): R09.02 - HYPOXEMIA SNOMED Code(s ): 555453652 Comment: Of unknown cause, CXR negative. Repeated desats, worse with activity. CTA negative for PE. Signficant pulmonary edema with B/L Pleural effusions. Lasix ordered 40mg IV total. Now on RA. Echo pending. Patient has murmur on exam, possible new onset. Most consistent with . (4) Anxiety Current Visit: Yes Status: Acute Priority: High Code(s): F41.9 - ANXIETY DISORDER, UNSPECIFIED SNOMED Code(s): 71227186 Comment: Continue Klonipin. Explained to patient that benzodiazepines are not for the [facility] treatment of anxiety. Patient has had previous poor reactions to SSRIs and SNRIs due to increased cycling with BPI. Will start on Buspar. (5) Bipolar disorder Current Visit: Yes Status: Acute Priority: High Comment: Resume Topamax which patient is prescribed outpatient. (6) Constipation Current Visit: Yes Status: Acute Code(s): K59.00 - CONSTIPATION, UNSPECIFIED SNOMED Code(s): 41844979 Comment: Continue PRN bowel medications Patient has no subjective constipation. (7) Depression Current Visit: Yes Status: Acute Priority: High Code(s): F32.9 - MAJOR DEPRESSIVE DISORDER, SINGLE EPISODE, UNSPECIFIED SNOMED Code(s): 95751006 Comment: Supportive care, had previous bad reaction to SSRI and SNRI. (8) Leukocytosis Current Visit: Yes Status: Acute Code(s): D72.829 - ELEVATED WHITE BLOOD CELL COUNT, UNSPECIFIED SNOMED Code(s): 644223486 Comment: Suspect this is secondary to IV steroids Skin infection appears to be improving (9) PTSD (post-traumatic stress disorder) Current Visit: Yes Status: Acute Priority: High Code(s): F43.10 - POST- TRAUMATIC STRESS DISORDER, UNSPECIFIED SNOMED Code(s): 96306780 Comment: Supportive care (10) DVT prophylaxis Current Visit: Yes Status: Acute Priority: High Code(s): KMK6567 - SNOMED Code(s): 875914579 Comment: SCDs and Heparin SubQ (11) Full code status Current Visit: Yes Status: Acute Code(s): Z78.9 - OTHER SPECIFIED HEALTH STATUS SNOMED Code(s): 046604663 Status and Disposition: Inpatient. Discharge to home when medically stable.
[2017-09-21] MEDS: Clindamycin CAP* 150 MG PO SCH ×2 (14:12→22:03)
[2017-09-22] MEDS: Clindamycin CAP* 150 MG PO SCH ×3 (06:03→21:15)
[2017-09-22] MEDS: traMADol TAB* 50 MG PO PRN ×4 (06:04→21:15)
[2017-09-22] MEDS: diPHENhydraMINE PO* 50 MG PO PRN ×3 (06:04→18:49)
[2017-09-22] MEDS: Heparin VIAL(*) 5000 UNITS/ML VIAL (FIVE THOUSAND) SUBCUT SCH ×3 (06:05→21:16)
[2017-09-22 07:48] LABS: Hematocrit 38 % (35-47); Hemoglobin 12.4 g/dl (12.0-16.0); Mean Corpuscular HGB Conc 33 g/dl (31-36); Mean Corpuscular Hemoglobin 32 pg (27-31); Mean Corpuscular Volume 97 fL (80-97); Mean Platelet Volume 7 um3 (7.4-10.4); Platelet Count 398 10^3/ul (150-450); Red Blood Count 3.88 10^6/ul (4.0-5.4); Red Cell Distribution Width 15 % (10.5-15); White Blood Count 19.2 10^3/ul (3.5-10.8)
[2017-09-22 08:10] LABS: EGFR Non-African American 86.9 (>60)
[2017-09-22] MEDS: Topiramate TAB(*) 25 MG PO SCH ×2 (10:08→21:15)
[2017-09-22] MEDS: clonazePAM TAB(*) 1 MG PO SCH ×2 (10:08→21:16)
[2017-09-22] MEDS: busPIRone TAB* 5 MG PO SCH ×2 (10:09→21:16)
[2017-09-22] MEDS: predniSONE TAB* 20 MG PO SCH (10:09)
[2017-09-22] MEDS: MOISTURIZING TOPICAL SCH ×3 (10:10→21:16)
[2017-09-22] MEDS: Clobetasol 0.05% OINT* 30 GM TUBE TOPICAL SCH ×2 (10:10→21:17)
--- NOTE | 2017-09-22 10:29 | PN ---
Progress Note - Progress Note Date of Service: 09/22/17 SOAP: Subjective: CC: cellulitis HPI: 42 year old woman with extensive eczema complicated by right leg cellulitis. Rash and right leg swelling, pain, redness much improved. No fever , rash, or diarrhea. Objective: Vital Signs Temp 36.8 C 09/22/17 07:10 Pulse 56 09/22/17 07:30 Resp 16 09/22/17 10:08 BP 132/57 09/22/17 07:10 Pulse Ox 97 09/22/17 07:31 Intake & Output 09/21/17 09/22/17 09/22/17 18:59 06:59 18:59 Intake Total 1580 400 Balance 1580 400 Weight 115 lb 6.4 oz Intake: IV Fluids 60 ABX - CLINDAMYCIN 50 NS (0.9%) 10 Oral 1520 400 Other: # Bowel Movements 1 0 # Voids 1 Gen:awake, no distress HEENT:PERRL, MMM Heart:RRR no murmur Lungs:CTA BL Abd:+BS NTND soft Skin: scattered excoriation, no rash MSK:R leg no edema or erythema Laboratory Results - last 24 hr 09/22/17 09/22/17 07:26 07:26 WBC 19.2 H RBC 3.88 L Hgb 12.4 Hct 38 MCV 97 MCH 32 H MCHC 33 RDW 15 Plt Count 398 MPV 7 L Sodium 135 Potassium 3.7 Chloride 104 Carbon Dioxide 25 Anion Gap 6 BUN 13 Creatinine 0.74 Est GFR ( Amer) 111.8 Est GFR (Non-Af Amer) 86.9 BUN/Creatinine Ratio 17.6 Glucose 117 H Calcium 8.8 Magnesium 2.1 Assessment: 1. severe eczema 2. R leg cellulitis 3. anxiety Plan: 1. clindamycin 300 mg po tid x3 more days 2. taper systemic corticosteroids 3. clobetasol to all areas other than face and skin folds; cycle of two weeks on , one week off, dermatology follow up
[2017-09-22] MEDS: Nicotine Inhaler* 10 MG AMP INH PRN (12:26)
[2017-09-22] MEDS: LORazepam TAB(*) 0.5 MG PO PRN ×2 (12:27→18:49)
[2017-09-22 12:54] LABS: ABS Basophils 0 10^3/ul (0-0.2); ABS Eosinophils 0.2 10^3/ul (0-0.6); ABS Lymphocytes 3.3 10^3/ul (1.0-4.8); ABS Neutrophils 13.7 10^3/ul (1.5-7.7); ABS Nucleated RBC 0 10^3/ul; Eosinophil % 0.9 % (0-6); Lymphocyte % 17.4 % (25-47); Nucleated Red Blood Cells % 0.1
--- NOTE | 2017-09-22 16:36 | ECHO ---
Patient: EZRA TERAN [facility] Rec#: [id number] : 1975 Date: 09/22/2017 Age: 42y Height: 177.8 cm / 70.0 in Weight: 58.51 kg / 129.0 lbs Sex: F BSA: 1.73 Room#: 422 Admit Date#: 09/16/2017 Type: Inpatient Referring: Jeff Cam MD Reading: Sreedhar Munson MD Assurance Manager Insurance: Elisabet Valdes,RDCS,RDMS CC: JONA HUSAIN OSS ARCHITECT Transthoracic Echocardiogram Indication: Murmur BP: 147/64 HR: 42 Rhythm: Bradycardia Findings History: Pleural effusions, smoker Technical Comments: The study quality is good. Left Ventricle: The left ventricular chamber size is normal. There is no left ventricular hypertrophy. The estimated ejection fraction is 50-55%. closer to 55%. Normal left ventricular diastolic filling is observed. Left Atrium: The left atrium is slightly dilated. Right Ventricle: The right ventricular chamber size and systolic function are within normal limits. Right Atrium: The right atrial cavity size is normal. Aortic Valve: The aortic valve is trileaflet. Systolic excursion of the aortic valve is normal. There is a trace of aortic regurgitation. There is no evidence of aortic stenosis. Mitral Valve: The mitral valve leaflets appear normal. There is trace to mild mitral regurgitation. There is no evidence of mitral stenosis. Tricuspid Valve: The tricuspid valve leaflets are normal. There is mild tricuspid regurgitation. Unable to estimate the right ventricular systolic pressure. Pulmonic Valve: There is no evidence of pulmonic valve thickening. There is mild pulmonic regurgitation. multiple small jets. Pericardium: There is no significant pericardial effusion. Aorta: The aortic root appears normal. There is no dilatation of the aortic arch. Pulmonary Artery: The main pulmonary artery is not well visualized. Venous: The inferior vena cava appears normal in size. There is a greater than 50% respiratory change in the inferior vena cava dimension. Summary: There was not any prior study for comparison. Conclusions Marked bradycardia: approx 40 bpm during the study The estimated ejection fraction is 50-55%, closer to 55%. The left atrium is slightly dilated. There is a trace of aortic regurgitation. There is trace to mild mitral regurgitation. There is mild tricuspid regurgitation. There is mild pulmonic regurgitation with multiple small jets. Measurements Name Value Normal Range RVIDd (AP) 2D 2.2 cm (0.9 - 2.6) RVDdMajor (2D) 2.9 cm (2.2 - 4.4) RAd ISD 4CH 4.7 cm (3.4 - 4.9) RA (A4C)W 3.8 cm (2.9 - 4.6) IVSd (2D) 0.9 cm (0.6 - 1) LVPWd (2D) 0.9 cm (0.6 - 1) LVIDd (2D) 4.7 cm (3.6 - 5.4) LVIDs (2D) 3.6 cm - LV FS (2D) 23 % (25 - 45) Aortic Annulus 2 cm (1.4 - 2.6) Ao root diameter (2D) 3 cm (2.1 - 3.5) Ascending Ao 2.8 cm (2.1 - 3.4) Aortic arch 2.1 cm (1.8 - 3.4) LA dimension (AP) 2D 3.3 cm (2.3 - 3.8) LAd ISD 4CH 4.7 cm (2.9 - 5.3) LA ISD 4CH W 4.1 cm (2.5 - 4.5) Name Value Normal Range LA ESV SP 4CH (A/L) 51.94 ml - LA ESV SP 2CH (A/L) 65.74 ml - LA ESV BP (A/L) 61.63 ml - LA ESV BP (A/L) index 36 ml/m2 - LA ESV SP 4CH (MOD) 48.7 ml - LA ESV SP 2CH (MOD) 57.55 ml - Name Value Normal Range MV E-wave Vmax 0.6 m/sec - MV deceleration time 178 msec - MV A-wave Vmax 0.3 m/sec - MV E:A ratio 2 ratio - LV septal e' Vmax 0.12 m/sec - LV lateral e' Vmax 0.13 m/sec - LV E:e' septal ratio 5 ratio - LV E:e' lateral ratio 4 ratio - Name Value Normal Range AV Vmax 1 m/sec - AV VTI 25.7 cm - AV peak gradient 4 mmHg - AV mean gradient 1.9 mmHg - LVOT Vmax 0.9 m/sec - LVOT VTI 23 cm - LVOT peak gradient 3.2 mmHg - LVOT mean gradient 1.8 mmHg - Name Value Normal Range RAP 8 mmHg - IVC diameter 1.6 cm - Name Value Normal Range PV Vmax 0.8 m/sec - PV peak gradient 2.6 mmHg -
--- NOTE | 2017-09-22 19:45 | PN ---
Subjective Date of Service: 09/22/17 Interval History: Patient seen and examined. Much improvement. Cleared by ID for DC today. No complaints. but per RN, patient is appealing discharge. Denies chest pain, denies SOb, no fevers or chills, some itching. Family History: Unchanged from Admission Social History: Unchanged from Admission Past Medical History: Unchanged from Admission Objective Active Medications: Acetaminophen (Tylenol Tab*) 650 mg PO Q4H PRN PRN Reason: FEVER/PAIN Last Admin: 09/20/17 16:29 Dose: 650 mg Buspirone HCl (Buspar Tab*) 5 mg PO BID [facility] Last Admin: 09/22/17 10:09 Dose: 5 mg Clindamycin HCl (Cleocin Cap*) 300 mg PO Q8HR [facility] Last Admin: 09/22/17 12:27 Dose: 300 mg Clobetasol Propionate (Clobetasol 0.05% Oint*) 1 applic TOPICAL BID [facility] Last Admin: 09/22/17 10:10 Dose: 1 applic Clonazepam (Klonopin Tab(*)) 2 mg PO BID [facility] Last Admin: 09/22/17 10:08 Dose: 2 mg Diphenhydramine HCl (Benadryl Po*) 50 mg PO Q6H PRN PRN Reason: ITCHING Last Admin: 09/22/17 18:49 Dose: 50 mg Heparin Sodium (Porcine) (Heparin Vial(*)) 5,000 units SUBCUT Q8HR [facility] Last Admin: 09/22/17 12:28 Dose: 5,000 units Lorazepam (Ativan Tab(*)) 0.5 mg PO Q6H PRN PRN Reason: ANXIETY Last Admin: 09/22/17 18:49 Dose: 0.5 mg Magnesium Hydroxide (Milk Of Magnesia Liq*) 30 ml PO Q6H PRN PRN Reason: CONSTIPATION Multi-Ingredient Ointment (Hydrocerin Cream*) 1 applic TOPICAL TID [facility] Last Admin: 09/22/17 12:28 Dose: 1 applic Nicotine (Nicotine Inhaler*) 10 mg INH Q2H PRN PRN Reason: CRAVING Last Admin: 09/22/17 12:26 Dose: 10 mg Polyethylene Glycol/Electrolytes (Miralax*) 17 gm PO DAILY PRN PRN Reason: CONSTIPATION Last Admin: 09/18/17 16:44 Dose: 17 gm Prednisone (Deltasone Tab*) 60 mg PO DAILY [facility] Last Admin: 09/22/17 10:09 Dose: 60 mg Topiramate (Topamax(*)) 50 mg PO BID [facility] Last Admin: 09/22/17 10:08 Dose: 50 mg Tramadol HCl (Ultram*) 50 mg PO Q4H PRN PRN Reason: PAIN Last Admin: 09/22/17 17:08 Dose: 50 mg Vital Signs - 8 hr 09/22/17 09/22/17 09/22/17 11:57 12:27 14:03 Temperature Pulse Rate Respiratory 16 16 16 Rate Blood Pressure (mmHg) O2 Sat by Pulse Oximetry 09/22/17 09/22/17 09/22/17 15:59 17:08 18:49 Temperature 98.3 F Pulse Rate 50 Respiratory 16 16 16 Rate Blood Pressure 100/62 (mmHg) O2 Sat by Pulse 100 Oximetry Oxygen Devices in Use Now: None Appearance: Alert, NAD Eyes: No Scleral Icterus, PERRLA Ears/Nose/Mouth/Throat: Mucous Membranes Moist Neck: NL Appearance and Movements; NL JVP, Trachea Midline Respiratory: Symmetrical Chest Expansion and Respiratory Effort, Clear to Auscultation Cardiovascular: NL Sounds; No Murmurs; No JVD, RRR Abdominal: NL Sounds; No Tenderness; No Distention Extremities: No Edema, No Clubbing, Cyanosis Skin: - - body rash/erythema improved Neurological: Alert and Oriented x 3 Nutrition: Taking PO's Result Diagrams: 09/22/17 07:26 09/22/17 07:26 Additional Lab and Data: Microbiology and Other Data: Microbiology 09/15/17 22:45 Nasal Screen MRSA (PCR)(MADYSON) - Final Nasal Mrsa Negative Assess/Plan/Problems-Billing Assessment: Ms. Corona is a 42 y/o female patient who presented to the emergency room with complaints of a diffuse rash and puritis with an overlying cellulitis. - Patient Problems (1) Atopic dermatitis Code(s): L20.9 - ATOPIC DERMATITIS, UNSPECIFIED SNOMED Code(s): 44583656 Comment: - S/P punch biopsy, eosinophilic spongiotic dermatitis - Per ID continue clinda, pred taper and clobetasol (2) Bipolar disorder Comment: - Resume Topamax (3) Cellulitis Code(s): L03.90 - CELLULITIS, UNSPECIFIED SNOMED Code(s): 208801270 Comment: - continue PO clinday 3 more days (4) DVT prophylaxis Code(s): UWR9686 - SNOMED Code(s): 647191235 Comment: SCDs and Heparin SubQ (5) Anxiety Code(s): F41.9 - ANXIETY DISORDER, UNSPECIFIED SNOMED Code(s): 09516410 Comment: - Continue Klonipin - buspar started this admission (6) Hypoxia Code(s): R09.02 - HYPOXEMIA SNOMED Code(s): 227223009 Comment: - CXR and ECHO with no clear etiology, CTA negative - No on ECHO - Was bradycardic in 40's - Likely r/t pleural effusions, had IV lasix, now off O2 - No desats last 24 hours, stable (7) Leukocytosis Current Visit: Yes Status: Acute Code(s): D72.829 - ELEVATED WHITE BLOOD CELL COUNT, UNSPECIFIED SNOMED Code(s): 439593352 Comment: - Suspect this is secondary to IV steroids and cellulitis (8) PTSD (post-traumatic stress disorder) Code(s): F43.10 - POST-TRAUMATIC STRESS DISORDER, UNSPECIFIED SNOMED Code(s): 08756036 Comment: Supportive care Status and Disposition: Medically optimized for discharge today, however, patient is appealing discharge. Will revisit in AM Counseling and/or Coordination of Care Minutes: coordinated with staff
[2017-09-22] MEDS ORDERED: LORazepam INJ* 2 MG/ML 1 ML VIAL IV PUSH PRN (22:13)
[2017-09-23] MEDS: diPHENhydraMINE PO* 50 MG PO PRN ×2 (01:06→09:52)
[2017-09-23] MEDS: traMADol TAB* 50 MG PO PRN ×3 (01:06→09:52)
[2017-09-23] MEDS: LORazepam TAB(*) 0.5 MG PO PRN ×2 (01:06→09:51)
[2017-09-23] MEDS: Clindamycin CAP* 150 MG PO SCH (05:21)
[2017-09-23] MEDS: Heparin VIAL(*) 5000 UNITS/ML VIAL (FIVE THOUSAND) SUBCUT SCH (05:21)
[2017-09-23 08:55] VITALS: BP 129/84
[2017-09-23] MEDS: Topiramate TAB(*) 25 MG PO SCH (09:51)
[2017-09-23] MEDS: busPIRone TAB* 5 MG PO SCH (09:51)
[2017-09-23] MEDS: predniSONE TAB* 20 MG PO SCH (09:51)
[2017-09-23] MEDS: clonazePAM TAB(*) 1 MG PO SCH (09:52)
[2017-09-23] MEDS: MOISTURIZING TOPICAL SCH (09:55)
[2017-09-23] MEDS: Clobetasol 0.05% OINT* 30 GM TUBE TOPICAL SCH (09:55)
== END 2017-09-23 12:35 | DRG 383 ==
LOC: ED 15:42 → MED 21:34 → OBSVTOIN 09-16 14:47
PROVIDERS: ADMIT Hospitalist; ATTEND Internal Medicine
PROC: 0HBLXZX Excision of Left Lower Leg Skin, External Approach, Diagnostic (ICD-10-PCS; principal; 2017-09-16)
DX: L03.113 Cellulitis of right upper limb (principal); D69.6 Thrombocytopenia, unspecified; L03.116 Cellulitis of left lower limb; L03.115 Cellulitis of right lower limb; F41.9 Anxiety disorder, unspecified; F32.9 Major depressive disorder, single episode, unspecified; F31.9 Bipolar disorder, unspecified; F43.10 Post-traumatic stress disorder, unspecified; L20.9 Atopic dermatitis, unspecified; R09.02 Hypoxemia; F17.210 Nicotine dependence, cigarettes, uncomplicated; L30.9 Dermatitis, unspecified; K59.00 Constipation, unspecified; Z81.8 Family history of other mental and behavioral disorders; Z88.8 Allergy status to other drugs, medicaments and biological substances; Z88.5 Allergy status to narcotic agent
CPT/HCPCS: 11100; 36415; 71045; 71275; 80048; 80053; 80202; 82270; 82565; 82607; 82746; 82803; 83605; 83735; 84436; 84443; 84520; 85025; 85027; 85610; 85652; 86140; 87040; 87641; 88305; 93306; 99283; A9270-GY; J0692; J1644; J1885; J1940; J2270; J2405; J2920; J2930; J3370; J7512; Q9967

== ENCOUNTER 2018-02-22 13:25 | Emergency (ER) | payer OTHER ==
[2018-02-22] MEDS ORDERED: Ketorolac INJ* 30 MG/ML 1 ML VIAL IV PUSH ONE (17:20)
[2018-02-22] MEDS ORDERED: Clindamycin 600 MG IVPREMIX(* 600 MG/50 ML SDV IV ONE (17:50)
[2018-02-22 17:56] LABS: ABS Basophils 0.1 10^3/ul (0-0.2); ABS Eosinophils 0.1 10^3/ul (0-0.6); ABS Lymphocytes 2.1 10^3/ul (1.0-4.8); ABS Monocytes 0.6 10^3/ul (0-0.8); ABS Neutrophils 7.3 10^3/ul (1.5-7.7); ABS Nucleated RBC 0 10^3/ul; Hematocrit 40 % (35-47); Hemoglobin 13.7 g/dl (12.0-16.0); Lymphocyte % 20.7 % (25-47); Mean Corpuscular HGB Conc 35 g/dl (31-36); Mean Corpuscular Hemoglobin 34 pg (27-31); Mean Corpuscular Volume 98 fL (80-97); Mean Platelet Volume 7.4 um3 (7.4-10.4); Nucleated Red Blood Cells % 0; Platelet Count 299 10^3/ul (150-450); Red Blood Count 4.05 10^6/ul (4.00-5.40); Red Cell Distribution Width 14 % (10.5-15); White Blood Count 10.1 10^3/ul (3.5-10.8)
[2018-02-22 18:14] LABS: EGFR Non-African American 77.2 (>60)
--- NOTE | 2018-02-22 18:19 | ED ---
Skin Complaint - HPI Summary HPI Summary: 42 year old female presents with left-sided facial swelling for the past couple days. She states she may have gotten a bug bite. States the swelling has gone done her eyes. She is range of motion of her eyes without any pain. She admits to headache. She is requesting pain medication. No fevers. No chills. Does not have a history of MRSA. Has a history of eczema. She denies any blurry vision. She denies any neck stiffness. - History of Current Complaint Chief Complaint: EDRashSkinAbscess Time Seen by Provider: 02/22/18 17:43 Stated Complaint: FACIAL SWELLING Hx Last Menstrual Period: Pain Intensity: 5 - Additional Pertinent History Primary Care Physician: KANG - Allergy/Home Medications Allergies/Adverse Reactions: Allergies Allergy/AdvReac Type Severity Reaction Status Date / Time MS Quetiapine [From Seroquel] Allergy PROFOUND Verified 02/22/18 13:34 DEPRESSION MS Codeine [Codeine] AdvReac Intermediate Nausea And Verified 02/22/18 13:34 Vomiting MS Gabapentin AdvReac Dizziness Verified 02/22/18 13:34 [From Neurontin] PMH/Surg Hx/FS Hx/Imm Hx Endocrine/Hematology History: Denies: Hx Diabetes, Hx Thyroid Disease Cardiovascular History: Denies: Hx Hypertension Respiratory History: Denies: Hx Asthma, Hx Chronic Obstructive Pulmonary Disease (COPD) GI History: Denies: Hx Ulcer History: Denies: Hx Acute Renal Failure, Hx Benign Prostatic Hyperplasia, Hx Chronic Renal Failure, Hx Dialysis, Hx Kidney Infection, Hx Kidney Stones, Other Problems/Disorders Musculoskeletal History: Reports: Hx Back Problems - upper back and neck pain Sensory History: Reports: Hx Contacts or Glasses Denies: Hx Hearing Aid Opthamlomology History: Reports: Hx Contacts or Glasses Psychiatric History: Reports: Hx Anxiety, Hx Depression, Hx Panic Disorder, Hx Post Traumatic Stress Disorder, Hx Inpatient Treatment, Hx Community Mental Health Tx, Hx Bipolar Disorder, Hx Substance Abuse Denies: Hx Eating Disorder, Hx of Violent Episodes Against Others - Cancer History Hx Chemotherapy: No Hx Radiation Therapy: No - Surgical History Surgery Procedure, Year, and Place: wisdom teeth - Immunization History Date of Tetanus Vaccine: within ten years Immunizations Up to Date: Yes Infectious Disease History: No Infectious Disease History: Reports: Hx Shingles - 2004 Denies: Hx Clostridium Difficile, Hx Hepatitis, Hx Human Immunodeficiency Virus (HIV), Hx of Known/Suspected MRSA, Hx Tuberculosis, Hx Known/Suspected VRE , Hx Known/Suspected VRSA, History Other Infectious Disease, Traveled Outside the [place] in Last 30 Days - Family History Known Family History: Positive: Hypertension Family History: PT LEFT AMA BEFORE FAMILY HISTORY COULD BE DETERMINED - Social History Alcohol Use: Rare Alcohol Amount: Sober since 09/28/13 Substance Use Type: Reports: Marijuana Substance Use Comment - Amount & Last Used: unknown Smoking Status (MU): Light Every Day Tobacco Smoker Type: Cigarettes Amount Used/How Often: 3 a day Length of Time of Smoking/Using Tobacco: since age 22 Have You Smoked in the Last Year: Yes Review of Systems Negative: Fever Negative: Chest Pain Negative: Shortness Of Breath Positive: Rash All Other Systems Reviewed And Are Negative: Yes Physical Exam Triage Information Reviewed: Yes Vital Signs On Initial Exam: Initial Vitals Temp Pulse Resp BP Pulse Ox 98.4 F 83 16 106/72 100 02/22/18 13:28 02/22/18 13:28 02/22/18 13:28 02/22/18 13:28 02/22/18 13:28 Vital Signs Reviewed: Yes Appearance: Positive: Well-Appearing Skin: Positive: Warm, Dry, Other - 1cm by 2cm area of induration on left side forearm, surrounding edema and erythema above left eye including lid, no edema below left eye Head/Face: Positive: Normal Head/Face Inspection Eyes: Positive: Normal, EOMI - no pain, DENISSE, Conjunctiva Clear ENT: Positive: Normal ENT inspection, Pharynx normal, TMs normal Respiratory/Lung Sounds: Positive: Clear to Auscultation, Breath Sounds Present Cardiovascular: Positive: Normal, RRR Musculoskeletal: Positive: Normal Neurological: Positive: Normal Psychiatric: Positive: Normal Diagnostics - Vital Signs Vital Signs Temp Pulse Resp BP Pulse Ox 02/22/18 15:33 99.2 F 64 18 116/68 100 02/22/18 13:28 98.4 F 83 16 106/72 100 - Laboratory Lab Results: Lab Results 02/22/18 Range/Units 17:45 WBC 10.1 (3.5-10.8) 10^3/ul RBC 4.05 (4.00-5.40) 10^6/ul Hgb 13.7 (12.0-16.0) g/dl Hct 40 (35-47) % MCV 98 H (80-97) fL MCH 34 H (27-31) pg MCHC 35 (31-36) g/dl RDW 14 (10.5-15) % Plt Count 299 (150-450) 10^3/ul MPV 7.4 (7.4-10.4) um3 Neut % (Auto) 72.2 (38-83) % Lymph % (Auto) 20.7 L (25-47) % Hoke % (Auto) 5.6 (0-7) % Eos % (Auto) 1.0 (0-6) % Baso % (Auto) 0.5 (0-2) % Absolute Neuts (auto) 7.3 (1.5-7.7) 10^3/ul Absolute Lymphs (auto) 2.1 (1.0-4.8) 10^3/ul Absolute Monos (auto) 0.6 (0-0.8) 10^3/ul Absolute Eos (auto) 0.1 (0-0.6) 10^3/ul Absolute Basos (auto) 0.1 (0-0.2) 10^3/ul Absolute Nucleated RBC 0 10^3/ul Nucleated RBC % 0 Result Diagrams: 02/22/18 17:45 02/22/18 17:45 Lab Statement: Any lab studies that have been ordered have been reviewed, and results considered in the medical decision making process. Course/Dx - Course Course Of Treatment: 42 year old female presents with left-sided facial swelling for the past couple days. She states she may have gotten a bug bite. States the swelling has gone done her eyes. She is range of motion of her eyes without any pain. She admits to headache. She is requesting pain medication. No fevers. No chills. Does not have a history of MRSA. Has a history of eczema. She denies any blurry vision. She denies any neck stiffness. on exam has area of induation on left side of forehead, has edema to above left eye, no edema below eye so not consistent with periseptal cellulitis yet. EOMI. gave dose of clindamycin. unable to drain abscess at this point told to continue heat on the area. labs wnl. will have continue clindamycin at home. patient requesting pain medicationo which gave a short course of such. told if develop pain with EOMI to return immediately. will have follow up with primary. patient understand and agrees with plan. - Differential Diagnoses - Skin Complaint Differential Diagnoses: Abscess, Cellulitis, Contact Dermatitis - Diagnoses Provider Diagnoses: Cellulitis of face Discharge - Sign-Out/Discharge Documenting (check all that apply): Discharge/Admit/Transfer - Discharge Plan Condition: Good Disposition: HOME Prescriptions: Clindamycin Cap(NF) [Clindamycin Cap 300 mg Cap(NF)] 300 mg PO TID #29 cap traMADol TAB* [Ultram*] 50 mg PO Q8H PRN #9 tab MDD 3 PRN Reason: Pain Patient Education Materials: Cellulitis (ED) Referrals: Subha Gant MD [Primary Care Provider] - Additional Instructions: take clindamycin three times a day for [address] heat on the area Take tyenlol or ibuprofen every 6 hours, use narcotic for break through pain every 8 hours Follow up with primary within 3 days Return to ED if develop any new or worsening symptoms - Billing Disposition and Condition Condition: GOOD Disposition: Home
[2018-02-22] MEDS ORDERED: clonazePAM TAB(*) 1 MG PO ONE (18:27)
[2018-02-22 18:52] VITALS: BP 108/72
== END 2018-02-22 18:36 | disposition home or self-care (01) ==
LOC: ED 13:25
DX: L03.211 Cellulitis of face (principal); F17.210 Nicotine dependence, cigarettes, uncomplicated; Z87.2 Personal history of diseases of the skin and subcutaneous tissue; Z88.8 Allergy status to other drugs, medicaments and biological substances; Z88.5 Allergy status to narcotic agent
CPT/HCPCS: 36415; 80053; 83605; 85025; 96374; 96375; 99283; A9270-GY; J1885

== ENCOUNTER 2019-04-18 13:03 | Emergency (ER) | payer OTHER ==
[2019-04-18 13:11] VITALS: BP 116/71
--- NOTE | 2019-04-18 13:13 | UC ---
Ear Complaint HPI - HPI Summary HPI Summary: 43 yo female presents with LEFT ear pain. She tells me that she has bad chronic eczema for which she sees dermatology. Over the last few days has had dry skin in her ears. 2 days ago began to have increased pain in her left ear with some white/bloody discharge. She has been applying ice and taking OTC pain medication with little relief. She admits that she has a low pain tolerance and hx of anxiety, which makes her eczema and pain worse. Denies fever, chills, headache, dizziness, sinus symptoms, sore throat. - History of Current Complaint Chief Complaint: UCEar Stated Complaint: EAR COMPLAINT Hx Obtained From: Patient Hx Last Menstrual Period: Onset/Duration: Gradual Onset Severity Initially: Severe Severity Currently: Severe Pain Intensity: 8 Pain Scale Used: 0-10 Numeric - Allergies/Home Medications Allergies/Adverse Reactions: Allergies Allergy/AdvReac Type Severity Reaction Status Date / Time alprazolam [From Xanax] Allergy See Comment Verified 04/18/19 13:12 codeine Allergy Nausea And Verified 04/18/19 13:12 Vomiting gabapentin Allergy Dizziness Verified 04/18/19 13:12 quetiapine [From Seroquel] Allergy See Comment Verified 04/18/19 13:12 Home Medications: Home Medications Multivitamin [Multivitamins] 1 cap PO 04/18/19 [History] Triamcinolone 0.1% CREAM (NF) [Kenalog 0.1% Cream (NF)] 1 applic .SEE ORDER 07/27 [History] clonazePAM TAB(*) [Klonopin TAB(*)] 2 mg PO BID PRN MDD 2mg 04/18/19 [History Confirmed 04/18/19] PMH/Surg Hx/FS Hx/Imm Hx - Additional Past Medical History Additional PMH: Dermatitis Psychological History: Anxiety, Depression, Bipolar Disorder - Surgical History Surgical History: Yes Surgery Procedure, Year, and Place: wisdom teeth - Family History Known Family History: Positive: Hypertension - Social History Lives: With Family Alcohol Use: Rare Alcohol Amount: Sober since 09/28/13 Substance Use Type: Marijuana Substance Use Comment - Amount & Last Used: unknown Smoking Status (MU): Light Every Day Tobacco Smoker Type: Cigarettes Amount Used/How Often: 3 a day Length of Time of Smoking/Using Tobacco: since age 22 Have You Smoked in the Last Year: Yes When Did the Patient Quit Smoking/Using Tobacco: now using vape pen to quit - Immunization History Most Recent Influenza Vaccination: 2014 Most Recent Tetanus Shot: not sure Most Recent Pneumonia Vaccination: pt states "no thank you" Review of Systems All Other Systems Reviewed And Are Negative: Yes Constitutional: Positive: Negative Skin: Positive: Negative Eyes: Positive: Negative ENT: Positive: Ear Ache Respiratory: Positive: Negative Cardiovascular: Positive: Negative Physical Exam - Summary Physical Exam Summary: GENERAL: NAD. WDWN. No pain distress. SKIN: No rashes, sores, lesions, or open wounds. HEENT: Head: AT/NC Eyes: EOM intact. Conjunctiva clear without inflammation or discharge. Ears: Hearing grossly normal. LEFT EAR canal with mild edema, erythema, and white thick drainage. TM appears intact and WNL. Right TM WNL and intact. Nose: Nasal mucosa pink and moist. NTTP maxillary and frontal sinus. Throat: Posterior oropharynx without exudates, erythema, or tonsillar enlargement. Uvula midline. NECK: Supple. Nontender. No lymphadenopathy. CHEST: CTAB. No r/r/w. No accessory muscle use. Breathing comfortably and in no distress. CV: RRR. Without m/r/g. Pulses intact. NEURO: Alert. PSYCH: Age appropriate behavior. Triage Information Reviewed: Yes Vital Signs: Initial Vital Signs Temp 97.6 F 04/18/19 13:06 Pulse 80 04/18/19 13:06 Resp 18 04/18/19 13:06 BP 116/71 04/18/19 13:06 Pulse Ox 99 04/18/19 13:06 Vital Signs Reviewed: Yes Ear Complaint Course/Dx - Course Course Of Treatment: Left otitis externa. She is asking for pain medication while the anbx ear drops are "kicking in" - will provide her with a few days of tramadol as she has had this in the past without issue. iSTOP Reference #: [id number] - Differential Dx/Diagnosis Provider Diagnosis: Otitis externa Discharge - Sign-Out/Discharge Documenting (check all that apply): Patient Departure All imaging exams completed and their final reports reviewed: No Studies - Discharge Plan Condition: Stable Disposition: HOME Prescriptions: Neomyc/Polym/HC 1% OTIC SUSP* [Cortisporin Otic Susp 1%*] 4 drop LEFT EAR TID # 1 btl traMADol TAB* [Ultram*] 50 mg PO Q12H PRN #6 tab MDD 2 PRN Reason: Pain - Moderate Patient Education Materials: Otitis Externa (ED) Referrals: Subha Gant MD [Primary Care Provider] - Additional Instructions: If you develop a fever, shortness of breath, chest pain, new or worsening symptoms - please call your PCP or go to the ED immediately. - Billing Disposition and Condition Condition: STABLE Disposition: Home - Attestation Statements Provider Attestation: I was available for consult. This patient was seen by the JUVENAL. The patient was not presented to , seen by or examined by de -Barb Hein MD
== END 2019-04-18 13:30 | disposition home or self-care (01) ==
LOC: UCEAST 13:03
DX: H60.92 Unspecified otitis externa, left ear (principal); F17.210 Nicotine dependence, cigarettes, uncomplicated
CPT/HCPCS: 99212; G0463